=== PATIENT | female | born 1940 | race Caucasian/White ===

== ENCOUNTER 2021-02-12 13:12 | Day surgery (SDC) | payer MEDICARE, OTHER ==
[2012-05-20 13:30] VITALS: BP 146/75
[2021-02-12] MEDS ORDERED: Depo-Medrol 40 MG/ML IM ONE (13:13)
[2021-02-12] MEDS ORDERED: LIDOCAINE HCL 2% 100 MG/5 ML IJ ONE (13:13)
[2021-02-12] MEDS ORDERED: Xylocaine 1% Vial 30 ML PF IJ ONE (13:13)
[2021-02-12] MEDS ORDERED: DIPRIVAN 200 MG/20 ML IV ONE (14:50)
[2021-02-12] MEDS ORDERED: Lactated Ringers 1,000 ML IV ONE (15:30)
--- NOTE | 2021-02-12 16:24 | XRAY ---
Indication: Bilateral T7-T10 MBB. Intraoperative fluoroscopy provided for 21 seconds. Single digital spot image submitted for interpretation demonstrate posterior needle tips projecting over the expected left and right T7-T10 nerve roots. Correlate with intraoperative findings/report.
--- NOTE | 2021-02-12 16:26 | XRAY ---
21 seconds fluoroscopy time in surgery for bilateral T7-T10 MBB.
== END 2021-02-12 15:16 | disposition home or self-care (01) ==
LOC: SDC-PAIN 13:12
PROVIDERS: ATTEND Psychiatry & Neurology Pain Medicine
DX: M47.814 Spondylosis without myelopathy or radiculopathy, thoracic region (principal); I10 Essential (primary) hypertension; K21.9 Gastro-esophageal reflux disease without esophagitis; K44.9 Diaphragmatic hernia without obstruction or gangrene; I34.1 Nonrheumatic mitral (valve) prolapse; Z79.899 Other long term (current) drug therapy
CPT/HCPCS: 64490; 64491; 64492; 72072; 77002; J1030; J2001; J2704

== ENCOUNTER 2021-03-26 09:10 | Day surgery (SDC) | payer MEDICARE, OTHER ==
[2012-05-20 13:30] VITALS: BP 146/75
[2021-03-26] MEDS ORDERED: BUPIVACAINE 0.5% VIAL IJ ONE (09:11)
[2021-03-26] MEDS ORDERED: Depo-Medrol 40 MG/ML IM ONE (09:11)
[2021-03-26] MEDS ORDERED: DIPRIVAN 200 MG/20 ML IV ONE (10:17)
--- NOTE | 2021-03-26 11:44 | XRAY ---
30 seconds fluoroscopy time in surgery for bilateral T7-T10 MBB.
--- NOTE | 2021-03-26 12:02 | XRAY ---
Indication: Bilateral T7-T10 MBB. Intraoperative fluoroscopy provided for 30 seconds. Single digital spot image submitted for interpretation demonstrates posterior needle tips projecting over the expected left and right T7-T10 nerve roots. Correlate with intraoperative findings/report.
[2021-03-26] MEDS ORDERED: Lactated Ringers 1,000 ML IV ONE (15:30)
== END 2021-03-26 10:52 | disposition home or self-care (01) ==
LOC: SDC-PAIN 09:10
PROVIDERS: ATTEND Psychiatry & Neurology Pain Medicine
DX: M47.814 Spondylosis without myelopathy or radiculopathy, thoracic region (principal); I10 Essential (primary) hypertension; F32.9 Major depressive disorder, single episode, unspecified; K21.9 Gastro-esophageal reflux disease without esophagitis; M19.90 Unspecified osteoarthritis, unspecified site; Z79.899 Other long term (current) drug therapy
CPT/HCPCS: 64490; 64491; 64492; 72020; 77002; J1030; J2704

== ENCOUNTER 2021-04-23 15:21 | Day surgery (SDC) | payer MEDICARE, OTHER ==
[2012-05-20 13:30] VITALS: BP 146/75
[2021-04-23] MEDS ORDERED: Depo-Medrol 40 MG/ML IM ONE (15:22)
[2021-04-23] MEDS ORDERED: BUPIVACAINE 0.5% VIAL IJ ONE (15:22)
[2021-04-23] MEDS ORDERED: Xylocaine 1% Vial 30 ML PF IJ ONE (15:22)
[2021-04-23] MEDS ORDERED: Lactated Ringers 1,000 ML IV ONE (18:50)
--- NOTE | 2021-04-23 20:56 | XRAY ---
Indication: Right T7-T10 RFA. Intraoperative fluoroscopy provided for 25 seconds. 2 digital spot images submitted for interpretation demonstrates posterior needle tips projecting over the expected right T7-T10 nerve roots. Correlate with intraoperative findings/report.
--- NOTE | 2021-04-24 08:56 | XRAY ---
25 seconds of fluoroscopy was used in surgery for a right T7-T10 RFA.
== END 2021-04-23 17:48 | disposition home or self-care (01) ==
LOC: SDC-PAIN 15:21
PROVIDERS: ATTEND Psychiatry & Neurology Pain Medicine
DX: M47.814 Spondylosis without myelopathy or radiculopathy, thoracic region (principal); Z79.899 Other long term (current) drug therapy
CPT/HCPCS: 64490; 64491; 64492; 72072; 77002; J1030; J2001

== ENCOUNTER 2021-04-30 14:13 | Day surgery (SDC) | payer MEDICARE, OTHER ==
[2012-05-20 13:30] VITALS: BP 146/75
[2021-04-30] MEDS ORDERED: Xylocaine 1% Vial 30 ML PF IJ ONE (14:14)
[2021-04-30] MEDS ORDERED: Depo-Medrol 40 MG/ML IM ONE (14:14)
[2021-04-30] MEDS ORDERED: BUPIVACAINE 0.5% VIAL IJ ONE (14:14)
[2021-04-30] MEDS ORDERED: DIPRIVAN 200 MG/20 ML IV ONE (15:37)
[2021-04-30] MEDS ORDERED: Lactated Ringers 1,000 ML IV ONE (15:59)
--- NOTE | 2021-05-01 11:54 | XRAY ---
26 seconds fluoroscopy time in surgery for left T7-T10 RFA.
--- NOTE | 2021-05-04 00:43 | XRAY ---
Indication: Left T7-T10 RFA. Intraoperative fluoroscopy was provided for 26 seconds. 2 digital spot images submitted for interpretation demonstrate posterior needle tips projected over the expected left T7-T10 nerve roots. Correlate with intraoperative findings/report.
== END 2021-04-30 16:11 | disposition home or self-care (01) ==
LOC: SDC-PAIN 14:13
PROVIDERS: ATTEND Psychiatry & Neurology Pain Medicine
DX: M47.816 Spondylosis without myelopathy or radiculopathy, lumbar region (principal); Z79.899 Other long term (current) drug therapy
CPT/HCPCS: 64490; 64491; 64492; 72072; 77002; J1030; J2001; J2704

== ENCOUNTER 2023-05-29 14:00 | Inpatient (IN) | payer MEDICARE, OTHER ==
--- NOTE | 2023-05-29 14:03 | ERPHSYRPT ---
- History of Present Illness Source: patient, family Exam Limitations: no limitations Timing/Duration: week(s) (Within the week symptoms are worsening), worse Severity of Dyspnea-Max: mild (To moderate) Severity of Dyspnea-Current: mild (To moderate with exertion) Possible Cause: occasional episodes Modifying Factors: Improves With: activity (Worsens), coughing (Nonproductive), exertion (Worsens), oxygen (Improved), rest (Improved) Associated Symptoms: cough Hx Tetanus, Diphtheria Vaccination/Date Given: Yes Hx Influenza Vaccination/Date Given: No Hx Pneumococcal Vaccination/Date Given: Yes <DAVIDE NICOLE - Last Filed: 05/29/23 18:45> <CLIFF COATS - Last Filed: 05/30/23 00:47> - History of Present Illness Time Seen by Provider: 05/29/23 14:03 Physician History: This is an obese 83-year-old white female patient of Dr. Roy who presents to the emergency department with 3-week history of shortness of breath that was improving the first 2 weeks. However in the last week, despite Z-Jeremy (currently on day 3) she is having increasing/worsening shortness of breath. Patient's oxygenation saturation level was in the high 80s on arrival to the emergency department we placed her on 2 L nasal cannula of oxygen. Her oxygen level now on 2 L of oxygen is approximately 96 to 97%. Patient does have a pain specialist, Dr. Seymour. In addition she has a car repairer, Dr. Ayala. Patient was recently diagnosed with an autoimmune disorder and is currently taking prednisone. In addition, the patient has a history of hypertension, migraine headaches, recurrent bronchitis, peripheral neuropathy and anxiety issues. She denies chest pain. She has no abdominal pain. She has not had a fever. She denies nausea vomiting and diarrhea. (DAVIDE NICOLE) Allergies/Adverse Reactions: terbinafine HCl [From Lamisil] Allergy (Verified 05/29/23 14:26) AFFECTS LIVER Home Medications: Bentyl 10 mg PO ACHS 05/17/12 [History] Enalapril Maleate 5 mg 20 mg PO BID 05/17/12 [History] Omeprazole 40 mg PO DAILY 05/17/12 [History] Propylene Glycol/Peg 400 [Systane 0.3-0.4% Eye Drops] 1 drop OP QID 06/27/15 [History] Amlodipine/Atorvastatin [Amlodipine-Atorvast 10-40 mg] 1 each PO HS 05/29/23 [History] Carboxymethylcellulose Sodium [Refresh Tears] 15 ml OP HS 05/29/23 [History] Chlorthalidone 25 mg PO DAILY 05/29/23 [History] Cyclosporine [Restasis Multidose] 1 drop OP BID 05/29/23 [History] Mirtazapine [Remeron] 15 mg PO DAILY 05/29/23 [History] Oxycodone / APAP 10/325 mg [Oxycodone-Acetaminophen 10-325] 1 tab PO BID PRN 05/29/23 [History] Potassium Chloride [Klor-Con 10] 10 meq PO QAM 05/29/23 [History] Prednisone 10 mg [Deltasone 10 mg] 10 mg PO DAILY 05/29/23 [History] Prednisone 5 mg [Deltasone 5 mg] 5 mg PO HS 05/29/23 [History] Vilazodone HCl [Viibryd] 40 mg PO DAILY 05/29/23 [History] Travel Risk - International Travel Have you traveled outside of the country in past 3 weeks: No - Coronavirus Screening Are you exhibiting any of the following symptoms?: Yes Symptoms: Cough: New Onset, Shortness of Breath <DAVIDE NICOLE - Last Filed: 05/29/23 18:45> - Review of Systems Constitutional: Weakness Eyes: No Symptoms Ears, Nose, & Throat: No Symptoms Respiratory: No Symptoms, Cough, Dyspnea on Exertion (ROSS) Cardiac: No Symptoms Abdominal/Gastrointestinal: No Symptoms Genitourinary Symptoms: No Symptoms Musculoskeletal: No Symptoms Skin: No Symptoms Neurological: No Symptoms Psychological: No Symptoms Endocrine: No Symptoms Hematologic/Lymphatic: No Symptoms Immunological/Allergic: No Symptoms All Other Systems: Reviewed and Negative <DAVIDE NICOLE - Last Filed: 05/29/23 18:45> - Past Medical History Pertinent Past Medical History: Yes Neurological History: Migraines, Peripheral Neuropathy ENT History: No Pertinent History Cardiac History: Hypertension Respiratory History: No Pertinent History Endocrine Medical History: No Pertinent History Musculoskeletal History: Degenerative Disk Disease, Osteoarthritis GI Medical History: Diverticulitis, Ulcer History: No Pertinent History Psycho-Social History: Depression, Anxiety Female Reproductive Disorders: No Pertinent History Other Medical History: Back pain, buldging disc, wore a Lumbar brace. Had a pain shot. Leaky Valve. - Past Surgical History Past Surgical History: Yes Neuro Surgical History: No Pertinent History Cardiac: No Pertinent History Respiratory: No Pertinent History Gastrointestinal: Appendectomy Genitourinary: Other Musculoskeletal: No Pertinent History Female Surgical History: No Pertinent History Other Surgical History: BLADDER TIE UP, abdominoplasty, Lft wrist surgery after fx - Social History Smoking Status: Former smoker Exposure to second hand smoke: No Drug Use: none Patient Lives Alone: No <DAVIDE NICOLE - Last Filed: 05/29/23 18:45> - Physical Exam General Appearance: no apparent distress, alert, anxiety, obese Eye Exam: PERRL/EOMI, eyes nml inspection Ears, Nose, Throat Exam: hearing grossly normal, normal ENT inspection, normal pharynx Neck Exam: normal inspection, non-tender, supple, full range of motion Respiratory Exam: normal breath sounds, lungs clear, respiratory distress, airway intact (Mild), No chest tenderness Cardiovascular/Chest Exam: tachycardia (Mild) Abdominal/Gastrointestinal Exam: soft, normal bowel sounds, No tenderness Rectal Exam: not done Extremity Exam: non-tender, normal range of motion, normal inspection, normal capillary refill, no calf tenderness, no pedal edema, pelvis stable Neurologic Exam: alert, oriented x 3, cooperative, light rail operator II-XII nml as tested, normal mood/affect Skin Exam: normal color, warm, dry Lymphatic Exam: No adenopathy SpO2 Interpretation: hypoxic O2 Delivery: Room Air <DAVIDE NICOLE - Last Filed: 05/29/23 18:45> - Nursing Vital Signs Nursing Vital Signs: Initial Vital Signs Temperature 98.4 F 05/29/23 14:03 Pulse Rate 104 H 05/29/23 14:03 Respiratory Rate 20 05/29/23 14:03 Blood Pressure 99/68 05/29/23 14:03 O2 Sat by Pulse Oximetry 90 L 05/29/23 14:03 Pain Scale Pain Intensity 0 - Course Nursing assessment & vital signs reviewed: Yes <DAVIDE NICOLE - Last Filed: 05/29/23 18:45> - CT Exams Chest CT Interpretation: Tele-radiologist Report, Other (PE 4th order branches of RLL) <CLIFF COATS - Last Filed: 05/30/23 00:47> Ordered Tests: Active Orders 24 hr Category Date Time Status Up With Assistance ROUTINE Activity 05/29/23 22:29 Active Call Admit Doctor for Orders ON ADMISSION Care 05/29/23 22:29 Active Carpentry Supervisor ROUTINE Care 05/29/23 22:29 Active Carpentry Supervisor STAT Care 05/29/23 14:19 Completed Code Status Order ROUTINE Care 05/29/23 22:29 Active EKG-ER Only STAT Care 05/29/23 14:18 Completed EKG-ER Only STAT Care 05/29/23 20:04 Completed IV Insertion STAT Care 05/29/23 14:18 Completed Heart-Healthy Diet Diet 05/30/23 Breakfast Active CHEST 1 VIEW (PORTABLE) Stat Exams 05/29/23 14:18 Completed CHEST WITH CONTRAST [CT] Stat Exams 05/29/23 19:06 Completed BLOOD CULTURE Stat Lab 05/29/23 14:49 Received BMP Stat Lab 05/29/23 17:40 Completed CBC W DIFF Stat Lab 05/29/23 14:35 Completed CMP Stat Lab 05/29/23 14:49 Completed D-DIMER QUANTITATIVE Stat Lab 05/29/23 14:49 Completed Lactic Acid Stat Lab 05/29/23 14:46 Completed NT PRO BNPII Stat Lab 05/29/23 14:49 Completed TROPONIN Q4H Lab 05/29/23 14:49 Completed TROPONIN Q4H Lab 05/29/23 17:40 Completed TROPONIN Q4H Lab 05/29/23 22:56 Completed Pulse Oximetry .continuos RT 05/29/23 22:29 Active Respiratory Therapy Consult ONCE RT 05/29/23 22:29 Completed Transfer Order Routine Transfer 05/29/23 Completed Medication Summary Generic Name Dose Route Start Last Admin Trade Name Freq PRN Reason Stop Dose Admin Enoxaparin Sodium 70 mg 05/30/23 10:30 Enoxaparin Sodium 80 Mg/0.8 Ml Syringe 1 mg/kg (70 mg) 06/29/23 10:29 SQ Q12H NAKITA Sodium Chloride 1,000 mls @ 100 mls/hr 05/29/23 23:30 05/29/23 23:31 Sodium Chloride 0.9% 1000 Ml IV 06/28/23 23:29 100 mls/hr .Q10H NAKITA Administration Discontinued Medications Generic Name Dose Route Start Last Admin Trade Name Sasha PRN Reason Stop Dose Admin Enoxaparin Sodium 70 mg 05/29/23 21:45 05/29/23 22:15 Enoxaparin Sodium 80 Mg/0.8 Ml Syringe SQ 05/29/23 21:46 70 mg STAT ONE Administration Enoxaparin Sodium Confirm 05/29/23 22:15 Enoxaparin Sodium 80 Mg/0.8 Ml Syringe Administered 05/29/23 22:16 Dose 80 mg SQ .STK-MED ONE Sodium Chloride 500 mls @ 500 mls/hr 05/29/23 15:36 05/29/23 17:19 Sodium Chloride 0.9% 500 Ml IV 05/29/23 16:35 Infused .Q1H ONE Infusion Sodium Chloride Confirm 05/29/23 16:07 Sodium Chloride 0.9% 500 Ml Administered 05/29/23 16:08 Dose 500 mls @ ud IV .STK-MED ONE Sodium Chloride 500 mls @ 100 mls/hr 05/29/23 18:30 05/29/23 18:47 Sodium Chloride 0.9% 500 Ml IV 06/28/23 18:29 100 mls/hr .Q5H NAKITA Administration Sodium Chloride Confirm 05/29/23 23:13 Sodium Chloride 0.9% 1000 Ml Administered 05/29/23 23:14 Dose 1,000 mls @ ud .ROUTE .STK-MED ONE Sodium Chloride Confirm 05/29/23 18:47 Sodium Chloride 0.9% 500 Ml Administered 05/29/23 18:48 Dose 500 mls @ ud IV .STK-MED ONE Pantoprazole Sodium 40 mg 05/29/23 20:10 05/29/23 20:15 Pantoprazole 40 Mg Vial IV 05/29/23 20:11 40 mg STAT ONE Administration Pantoprazole Sodium Confirm 05/29/23 20:14 Pantoprazole 40 Mg Vial Administered 05/29/23 20:15 Dose 40 mg IV .STK-MED ONE Lab/Rad Data: Laboratory Result Diagrams 05/29/23 14:35 05/29/23 17:40 Laboratory Results 05/29/23 05/29/23 05/29/23 Range/Units 17:40 17:40 14:55 WBC (4.0-10.5) x10^3/uL RBC (4.1-5.4) x10^6/uL Hgb (12.0-16.0) g/dL Hct (35-47) % MCV (78-100) fL MCH (26-32) pg MCHC (32-36) g/dL RDW (11.5-14.0) % Plt Count (150-450) x10^3/uL MPV (7.5-11.0) fL Gran % (36.0-66.0) % Immature Gran % (Auto) (0.00-0.4) % Nucleat RBC Rel Count (0.00-0.1) % Eos # (Auto) (0-0.5) x10^3/uL Immature Gran # (Auto) (0.00-0.03) x10^3u/L Absolute Lymphs (auto) (1.0-4.6) x10^3/uL Absolute Monos (auto) (0.0-1.3) x10^3/uL Absolute Nucleated RBC (0.00-0.01) x10^3u/L Lymphocytes % (24.0-44.0) % Monocytes % (0.0-12.0) % Eosinophils % (0.00-5.0) % Basophils % (0.0-0.4) % Absolute Granulocytes (1.4-6.9) x10^3/uL Basophils # (0-0.4) x10^3/uL D-Dimer (0.0-0.50) mg/L Sodium 135 L (137-145) mmol/L Potassium 3.7 (3.5-5.1) mmol/L Chloride 103 (98-107) mmol/L Carbon Dioxide 25 (22-30) mmol/L Anion Gap 10.5 (5-15) MEQ/L BUN 42 H (7-17) mg/dL Creatinine 1.42 H (0.52-1.04) mg/dL Estimated GFR 37.6 ML/MIN Glucose 97 (74-106) mg/dL Lactic Acid (0.4-2.0) Calcium 8.6 (8.4-10.2) mg/dL Total Bilirubin (0.2-1.3) mg/dL AST (14-36) U/L ALT (0-35) U/L Alkaline Phosphatase (38-126) U/L Troponin I 0.033 (0.000-0.034) ng/mL NT-Pro-B Natriuret Pep (<300) pg/mL Serum Total Protein (6.3-8.2) g/dL Albumin (3.5-5.0) g/dL Influenza Type A Ag NEGATIVE (NEGATIVE) Influenza Type B Ag NEGATIVE (NEGATIVE) RSV (PCR) NEGATIVE (NEGATIVE) SARS-CoV-2 (PCR) NEGATIVE (NEGATIVE) 05/29/23 05/29/23 05/29/23 Range/Units 14:49 14:49 14:49 WBC (4.0-10.5) x10^3/uL RBC (4.1-5.4) x10^6/uL Hgb (12.0-16.0) g/dL Hct (35-47) % MCV (78-100) fL MCH (26-32) pg MCHC (32-36) g/dL RDW (11.5-14.0) % Plt Count (150-450) x10^3/uL MPV (7.5-11.0) fL Gran % (36.0-66.0) % Immature Gran % (Auto) (0.00-0.4) % Nucleat RBC Rel Count (0.00-0.1) % Eos # (Auto) (0-0.5) x10^3/uL Immature Gran # (Auto) (0.00-0.03) x10^3u/L Absolute Lymphs (auto) (1.0-4.6) x10^3/uL Absolute Monos (auto) (0.0-1.3) x10^3/uL Absolute Nucleated RBC (0.00-0.01) x10^3u/L Lymphocytes % (24.0-44.0) % Monocytes % (0.0-12.0) % Eosinophils % (0.00-5.0) % Basophils % (0.0-0.4) % Absolute Granulocytes (1.4-6.9) x10^3/uL Basophils # (0-0.4) x10^3/uL D-Dimer 1.86 H* (0.0-0.50) mg/L Sodium 134 L (137-145) mmol/L Potassium 3.7 (3.5-5.1) mmol/L Chloride 100 (98-107) mmol/L Carbon Dioxide 22 (22-30) mmol/L Anion Gap 15.2 H (5-15) MEQ/L BUN 44 H (7-17) mg/dL Creatinine 1.51 H (0.52-1.04) mg/dL Estimated GFR 35.1 ML/MIN Glucose 139 H (74-106) mg/dL Lactic Acid (0.4-2.0) Calcium 8.7 (8.4-10.2) mg/dL Total Bilirubin 0.40 (0.2-1.3) mg/dL AST 32 (14-36) U/L ALT 30 (0-35) U/L Alkaline Phosphatase 76 (38-126) U/L Troponin I 0.037 H* (0.000-0.034) ng/mL NT-Pro-B Natriuret Pep 305 (<300) pg/mL Serum Total Protein 6.0 L (6.3-8.2) g/dL Albumin 3.6 (3.5-5.0) g/dL Influenza Type A Ag (NEGATIVE) Influenza Type B Ag (NEGATIVE) RSV (PCR) (NEGATIVE) SARS-CoV-2 (PCR) (NEGATIVE) 05/29/23 05/29/23 Range/Units 14:46 14:35 WBC 9.2 (4.0-10.5) x10^3/uL RBC 4.24 (4.1-5.4) x10^6/uL Hgb 11.5 L (12.0-16.0) g/dL Hct 36.5 (35-47) % MCV 86.1 (78-100) fL MCH 27.1 (26-32) pg MCHC 31.5 L (32-36) g/dL RDW 20.5 H (11.5-14.0) % Plt Count 254 (150-450) x10^3/uL MPV 8.4 (7.5-11.0) fL Gran % 82.7 H (36.0-66.0) % Immature Gran % (Auto) 1.1 H (0.00-0.4) % Nucleat RBC Rel Count 0.0 (0.00-0.1) % Eos # (Auto) 0.02 (0-0.5) x10^3/uL Immature Gran # (Auto) 0.10 H (0.00-0.03) x10^3u/L Absolute Lymphs (auto) 0.97 L (1.0-4.6) x10^3/uL Absolute Monos (auto) 0.48 (0.0-1.3) x10^3/uL Absolute Nucleated RBC 0.00 (0.00-0.01) x10^3u/L Lymphocytes % 10.5 L (24.0-44.0) % Monocytes % 5.2 (0.0-12.0) % Eosinophils % 0.2 (0.00-5.0) % Basophils % 0.3 (0.0-0.4) % Absolute Granulocytes 7.64 H (1.4-6.9) x10^3/uL Basophils # 0.03 (0-0.4) x10^3/uL D-Dimer (0.0-0.50) mg/L Sodium (137-145) mmol/L Potassium (3.5-5.1) mmol/L Chloride (98-107) mmol/L Carbon Dioxide (22-30) mmol/L Anion Gap (5-15) MEQ/L BUN (7-17) mg/dL Creatinine (0.52-1.04) mg/dL Estimated GFR ML/MIN Glucose (74-106) mg/dL Lactic Acid 1.6 (0.4-2.0) Calcium (8.4-10.2) mg/dL Total Bilirubin (0.2-1.3) mg/dL AST (14-36) U/L ALT (0-35) U/L Alkaline Phosphatase (38-126) U/L Troponin I (0.000-0.034) ng/mL NT-Pro-B Natriuret Pep (<300) pg/mL Serum Total Protein (6.3-8.2) g/dL Albumin (3.5-5.0) g/dL Influenza Type A Ag (NEGATIVE) Influenza Type B Ag (NEGATIVE) RSV (PCR) (NEGATIVE) SARS-CoV-2 (PCR) (NEGATIVE) - Progress Progress: improved, re-examined Air Movement: fair Blood Culture(s) Obtained: No Antibiotics given: No Counseled pt/family regarding: lab results, diagnosis, rad results <NICOLEDAVIDE Rik - Last Filed: 05/29/23 18:45> <CLIFF COATS - Last Filed: 05/30/23 00:47> - Progress Progress Note: 05/29/23 18:46 This patient's medical issue is that is of high complexity. Level of complexity in the work-up performed is based on review of the patient's past medical history, review of the patient's medication list, review the patient's drug allergy list, history present illness and physical findings on examination. Work-up in this patient includes chest x-ray, twelve-lead EKG, CBC, CMP, BNP, troponin level and D-dimer. 05/29/23 18:48 Chest x-ray was interpreted by me. There is evidence of mild cardiomegaly and question of bibasilar atelectasis. Review of the patient's blood work shows very slight elevation in the troponin level. The twelve-lead EKG does not show any acute myocardial infarction. The D-dimer is significantly elevated. However, the patient does have evidence of renal insufficiency/acute on chronic renal failure. She has a GFR of 34. I did rehydrate her and her GFR increased to 37.6. I provided the patient and family several options. The first option is to perform the CT scan of the chest with contrast while rehydrating her now and continue in the hospital. I do not think the patient should go home. The second option was to perform a CT scan of the chest without contrast and put her on anticoagulation therapy while we improve her respiratory status and then, when her renal function improves, performed a CT scan of the chest with contrast. The third option was to perform the CT scan of the chest without contrast, anticoagulate her and wait to perform a VQ scan of the chest. However, in this option, the patient would likely have to wait till next week on , June 03, 2023 when the nuclear medicine team is available and here. 05/31/2023 is a holiday and they will not be here to perform nuclear medicine studies. The final option is to transfer the patient to another facility to perform the testing. The patient and family had a discussion and they have decided to perform the CT scan of the chest with contrast and have a good understanding of the possibility of worsening kidney function and ultimately having to undergo dialysis. They are aware that I feel that this risk is low. 05/29/23 18:54 I reviewed this patient with Dr. Coats. I transferred care of this patient to Dr. Coats at shift change. He will follow-up on the remaining studies and make final disposition. (DAVIDE NICOLE) Assumed care at 1900. I personally reevaluated the patient who is in no respiratory distress at this time is saturating well on nasal cannula. She denies any current shortness of breath. Lung sounds were diminished in all soliman, but no crackles, wheezing, rhonchi appreciated. Patient has agreed to get CTA chest to rule out PE. We will discuss results once they are available. Patient will be admitted, but decision will be made after CT results as to if she will stay here or be transferred. If she has to be transferred she would prefer to go to [facility]. 05/29/23 19:[address] patient reported chest pain that had resolved almost completely by the time she was back in the room. He states it is similar to discomfort that she has frequently that resolves with Tums. Repeat EKG was ordered that showed sinus rhythm at 96 bpm with normal intervals and no ST changes. Give 40 mg of IV Protonix. 05/29/23 20:12 CTA chest showed a PE in the fourth order branches of the right lower lobe. Patient started on therapeutic Lovenox at 70 mg. We will reach out to telehospitalist regarding admission. 05/29/23 21:49 Patient accepted for admission at 1004. (CLIFF COATS) Medical Desision Making - Independent Historian Additional History obtained from: Family - Diagnostic Testing Diagnostic test were ordered, analyzed, and reviewed by me: Yes Radiological Interpretation: Reviewed by me, Teleradiologist Report - Risk of complications The pt has a high risk of morbidity or mortality based on: Decision regarding hospitilization or escalation of hosp level of care <DAVIDE NICOLE - Last Filed: 05/29/23 18:45> - Risk of complications The pt has a mod risk of morbidity or mortality based on: Need for prescription drug management <CLIFF COATS - Last Filed: 05/30/23 00:47> - Departure Departure Disposition: In-patient Admission Critical Care Time: Yes Critical Care Time(excluding separately billable procedures): Critical 30-74 mins (45 minutes) <DAVIDE NICOLE - Last Filed: 05/29/23 18:45> - Departure Departure Disposition: Observation <CLIFF COATS - Last Filed: 05/30/23 00:47> - Departure Clinical Impression: Hypoxia, Shortness of breath, Acute on chronic renal failure, Elevated d-dimer, Pulmonary embolism Condition: Stable
[2023-05-29 15:00] LABS: Absolute Neutrophil Ct (ANC) 7.64 x10^3/uL (1.4-6.9); BASOPHIL % 0.3 % (0.0-0.4); Basophil (Absolute #) 0.03 x10^3/uL (0-0.4); Eosinophil % 0.2 % (0.00-5.0); Eosinophil (Absolute #) 0.02 x10^3/uL (0-0.5); Hematocrit 36.5 % (35-47); Hemoglobin 11.5 g/dL (12.0-16.0); IMMATURE GRAN % 1.1 % (0.00-0.4); Lymphocyte (Absolute #) 0.97 x10^3/uL (1.0-4.6); Lymphocytes % 10.5 % (24.0-44.0); Mean Cell Volume 86.1 fL (78-100); Mean Corpuscular Hemoglobin 27.1 pg (26-32); Mean Corpuscular Hgb Concent. 31.5 g/dL (32-36); Mean Platelet Volume 8.4 fL (7.5-11.0); Monocyte (Absolute #) 0.48 x10^3/uL (0.0-1.3); Monocytes % 5.2 % (0.0-12.0); Neutrophil % 82.7 % (36.0-66.0); Platelet Count 254 x10^3/uL (150-450); Red Blood Count 4.24 x10^6/uL (4.1-5.4); Red Cell Distribution Width 20.5 % (11.5-14.0); White Blood Count 9.2 x10^3/uL (4.0-10.5)
[2023-05-29 15:24] LABS: ALBUMIN 3.6 g/dL (3.5-5.0); ANION GAP 15.2 MEQ/L (5-15); BILIRUBIN,TOTAL 0.4 mg/dL (0.2-1.3); Calcium 8.7 mg/dL (8.4-10.2); Creatinine 1 1.51 mg/dL (0.52-1.04); EST GLOMERULAR FILTRATION RATE 35.1 ML/MIN; Potassium 3.7 mmol/L (3.5-5.1)
[2023-05-29] MEDS ORDERED: Sodium Chloride 0.9% 500 ML 500 ML IV ONE ×3 (15:36→18:47)
[2023-05-29 16:36] LABS: INFLUENZA A NEGATIVE (NEGATIVE); INFLUENZA B NEGATIVE (NEGATIVE); RESPIRATORY SYNCTIAL VIRUS NEGATIVE (NEGATIVE); SARS-CoV-2 Xpert Express NEGATIVE (NEGATIVE)
[2023-05-29 17:55] LABS: ANION GAP 10.5 MEQ/L (5-15); Calcium 8.6 mg/dL (8.4-10.2); Creatinine 1 1.42 mg/dL (0.52-1.04); EST GLOMERULAR FILTRATION RATE 37.6 ML/MIN; Potassium 3.7 mmol/L (3.5-5.1)
[2023-05-29] MEDS ORDERED: Sodium Chloride 0.9% 500 ML 500 ML IV SCH (18:30)
[2023-05-29] MEDS ORDERED: PROTONIX 40 MG IV IV ONE ×2 (20:10→20:14)
--- NOTE | 2023-05-29 20:43 | XRAY ---
Indication: Short of breath. Comparison: March 24, 2019 Portable chest remains hyperinflated and clear with incidental right midlung calcified granuloma. Heart now enlarged. Stable moderate-sized hiatal hernia. Bony thorax intact. Impression: Cardiomegaly and hiatal hernia. Negative for acute pneumonic process or CHF.
--- NOTE | 2023-05-29 21:21 | XRAY ---
CLINICAL HISTORY:hypoxic; elevated d dimer COMPARISON:None. TECHNIQUE:Axial CTA images of the chest with intravenous contrast using a pulmonary embolism protocol as per angiographic protocol. Three-dimensional MIP-rendered reformations in Coronal and Sagittal planes were performed, reconstructed, and reviewed. 100 cc Isovue 370 was administered for post-contrast images. FINDINGS: Normal main pulmonary artery and the left and right main pulmonary trunks. Pulmonary embolism is detected in the right pulmonary fourth-order branches of the right lower lobe. Heart size is increased, and there is no pericardial effusion. The scanned pulmonary parenchyma shows no definite consolidative lesions. Bilateral diffuse mosaic attenuation of both lung soliman. The right upper lobe calcified nodule is seen measuring 7 mm. Prominence of bilateral chronic interstitial markings, fibroatelectatic bands, and subpleural lines are seen. No free or encysted pleural effusion. Normal ascending aorta, descending aorta, and aortic arch. Large hiatus hernia noted. IMPRESSION: Normal main pulmonary artery and the left and right main pulmonary trunks. Pulmonary embolism is detected in the right pulmonary fourth order branches of the right lower lobe. Mild cardiomegaly. Bilateral diffuse mosaic attenuation of both lung soliman. Possibilities include obstructive small airway disease or occlusive vascular disease. A large hiatus hernia is seen. Right upper lung lobe calcified nodule. Prominence of bilateral chronic interstitial markings, fibroatelectatic bands and subpleural lines are seen. Electronically Signed by: Timur Lambert MD. (05/29/2023 20:20:31 MUNICIPAL BOND TRADER)
[2023-05-29] MEDS ORDERED: ENOXAPARIN SODIUM SQ ONE ×2 (21:45→22:15)
[2023-05-29] MEDS ORDERED: Sodium Chloride 0.9% 1000 ML 1,000 ML ONE (23:13)
[2023-05-29] MEDS: Sodium Chloride 0.9% 1000 ML 1,000 ML IV SCH (23:31)
[2023-05-30] MEDS ORDERED: OXYCODONE-ACETAMINOPHEN 10-325 PO PRN (00:43)
--- NOTE | 2023-05-30 01:03 | PCM.HP ---
History of Present Illness - Chief Complaint Chief Complaint: pulmonary embolism Date: 05/30/23 History of Present Illness: Ms. Lama is an 83 year-old female with HTN, CKD, and DJD who presents with acute hypoxemic respiratory failure. She had been hospitalized for a pneumonia 3-4 weeks ago, and was discharged feeling better. She is generally fairly inactive due to her DJD leading to chronic lower back pain, but since her discharge from the hospital has been more so. Over the last 8 days, she has noticed worsening shortness of breath with exertion along with a cough. She was prescribed a Z-Pack by her PCP three days ago, but without any improvement in her symptoms, she presents today to [place]. Upon arrival, her laboratory data was remarkable for anemia, mild hyponatremia, and mildly elevated cardiac enzymes, and her CTA chest revealed a pulmonary embolism. Additionally, she was observed to be requiring supplemental oxygen with oxygen saturations in the low 80s on room air. On my examination, she is resting comfortably on 2L NC oxygen denying any current fevers, chills, nausea, vomiting, diarrhea, syncope, presyncope, visual changes, orthopnea, PND, odynophagia, dysphagia, chest pain, shortness of breath, belly pain, dysuria, hematuria, melena, hematochezia, or neurological changes. All other systems were reviewed and were negative. - Review of Systems Constitutional: Other ( PER HPI) Medications & Allergies Home Medications: Home Medication List Bentyl 10 mg PO ACHS 05/17/12 [History Confirmed 05/29/23] Enalapril Maleate 5 mg 20 mg PO BID 05/17/12 [History Confirmed 05/29/23] Omeprazole 40 mg PO DAILY 05/17/12 [History Confirmed 05/29/23] Propylene Glycol/Peg 400 [Systane 0.3-0.4% Eye Drops] 1 drop OP QID 06/27/15 [H istory Confirmed 05/29/23] Amlodipine/Atorvastatin [Amlodipine-Atorvast 10-40 mg] 1 each PO HS 05/29/23 [History Confirmed 05/29/23] Carboxymethylcellulose Sodium [Refresh Tears] 15 ml OP HS 05/29/23 [History Confirmed 05/29/23] Chlorthalidone 25 mg PO DAILY 05/29/23 [History Confirmed 05/29/23] Cyclosporine [Restasis Multidose] 1 drop OP BID 05/29/23 [History Confirmed 05/29/23] Mirtazapine [Remeron] 15 mg PO DAILY 05/29/23 [History Confirmed 05/29/23] Oxycodone / APAP 10/325 mg [Oxycodone-Acetaminophen 10-325] 1 tab PO BID PRN 05/29/23 [History Confirmed 05/29/23] Potassium Chloride [Klor-Con 10] 10 meq PO QAM 05/29/23 [History Confirmed 05/29/23] Prednisone 10 mg [Deltasone 10 mg] 10 mg PO DAILY 05/29/23 [History Confirmed 05/29/23] Prednisone 5 mg [Deltasone 5 mg] 5 mg PO HS 05/29/23 [History Confirmed 05/29/23] Vilazodone HCl [Viibryd] 40 mg PO DAILY 05/29/23 [History Confirmed 05/29/23] Allergies/Adverse Reactions: Allergies Allergy/AdvReac Type Severity Reaction Status Date / Time terbinafine HCl Allergy Verified 05/29/23 14:26 [From Lamisil] - Past Medical History Past Medical History: Yes Neurological History: Migraines, Peripheral Neuropathy ENT History: No Pertinent History Cardiac History: Hypertension Respiratory History: No Pertinent History Endocrine Medical History: No Pertinent History Musculoskelatal History: Degenerative Disk Disease, Osteoarthritis GI Medical History: Ulcer History: No Pertinent History Pyscho-Social History: Depression, Anxiety Reproductive Disorders: No Pertinent History Comment: Back pain, buldging disc, wore a Lumbar brace. Had a pain shot. Leaky Valve. - Female History Are you now?: No - Past Surgical History Past Surgical History: Yes Neuro Surgical History: No Pertinent History Cardiac History: No Pertinent History Respiratory Surgery: No Pertinent History GI Surgical History: Appendectomy Genitourinary Surgical Hx: Other Musculskeletal Surgical Hx: No Pertinent History Female Surgical History: No Pertinent History Other Surgical History: BLADDER TIE UP, abdominoplasty, Lft wrist surgery after fx - Social History Smoking Status: Former smoker Exposure to second hand smoke: No Alcohol: Daily Drug Use: none - Physical Exam Vital Signs: Vital Signs - 24 hr Temp Pulse Resp BP BP Pulse Ox 05/30/23 00:00 97.9 F 96 H 18 153/74 93 L 05/29/23 23:00 96 H 18 93 L 05/29/23 22:39 97.9 F 107 H 18 153/74 90 L 05/29/23 22:29 103 H 05/29/23 22:00 98 H 27 H 122/85 96 05/29/23 21:31 107 H 22 123/84 99 05/29/23 21:00 100 H 16 124/83 97 05/29/23 20:30 92 H 15 139/89 96 05/29/23 20:06 95 H 28 H 153/91 97 05/29/23 20:05 100 H 17 96 05/29/23 19:31 106 H 31 H 112/76 94 L 05/29/23 19:00 107 H 21 118/81 96 05/29/23 18:30 98 H 29 H 119/81 97 05/29/23 18:00 98 H 27 H 112/76 95 05/29/23 17:30 97 H 35 H 119/80 96 05/29/23 17:09 98 H 26 H 122/94 97 05/29/23 16:30 95 H 29 H 121/76 95 05/29/23 16:00 98 H 23 103/71 92 L 05/29/23 15:33 97 H 25 H 105/70 05/29/23 15:18 99 H 23 106/75 05/29/23 14:03 98.4 F 104 H 25 H 99/68 90 L General Appearance: no apparent distress, alert Neurologic Exam: alert, oriented x 3, cooperative, normal mood/affect, nml cerebellar function, nml station & gait, sensation nml, No motor deficits Eye Exam: PERRL/EOMI, eyes nml inspection Ears, Nose, Throat Exam: normal ENT inspection, TMs normal, pharynx normal, moist mucous membranes Neck Exam: normal inspection, non-tender, supple, full range of motion Respiratory Exam: normal breath sounds, lungs clear, No respiratory distress Cardiovascular Exam: regular rate/rhythm, normal heart sounds, normal peripheral pulses Gastrointestinal/Abdomen Exam: soft, normal bowel sounds, No tenderness, No mass Back Exam: normal inspection, normal range of motion, No CVA tenderness, No vertebral tenderness Extremity Exam: normal inspection, normal range of motion, pelvis stable Skin Exam: normal color, warm, dry, No rash Lymphatic Exam: No adenopathy Results - Labs Lab/Micro Results: Lab Results-Last 24 Hours 05/29/23 05/29/23 05/29/23 Range/Units 14:35 14:46 14:49 WBC 9.2 (4.0-10.5) x10^3/uL RBC 4.24 (4.1-5.4) x10^6/uL Hgb 11.5 L (12.0-16.0) g/dL Hct 36.5 (35-47) % MCV 86.1 (78-100) fL MCH 27.1 (26-32) pg MCHC 31.5 L (32-36) g/dL RDW 20.5 H (11.5-14.0) % Plt Count 254 (150-450) x10^3/uL MPV 8.4 (7.5-11.0) fL Gran % 82.7 H (36.0-66.0) % Immature Gran % (Auto) 1.1 H (0.00-0.4) % Nucleat RBC Rel Count 0.0 (0.00-0.1) % Eos # (Auto) 0.02 (0-0.5) x10^3/uL Immature Gran # (Auto) 0.10 H (0.00-0.03) x10^3u/L Absolute Lymphs (auto) 0.97 L (1.0-4.6) x10^3/uL Absolute Monos (auto) 0.48 (0.0-1.3) x10^3/uL Absolute Nucleated RBC 0.00 (0.00-0.01) x10^3u/L Lymphocytes % 10.5 L (24.0-44.0) % Monocytes % 5.2 (0.0-12.0) % Eosinophils % 0.2 (0.00-5.0) % Basophils % 0.3 (0.0-0.4) % Absolute Granulocytes 7.64 H (1.4-6.9) x10^3/uL Basophils # 0.03 (0-0.4) x10^3/uL D-Dimer (0.0-0.50) mg/L Sodium 134 L (137-145) mmol/L Potassium 3.7 (3.5-5.1) mmol/L Chloride 100 (98-107) mmol/L Carbon Dioxide 22 (22-30) mmol/L Anion Gap 15.2 H (5-15) MEQ/L BUN 44 H (7-17) mg/dL Creatinine 1.51 H (0.52-1.04) mg/dL Estimated GFR 35.1 ML/MIN Glucose 139 H (74-106) mg/dL Lactic Acid 1.6 (0.4-2.0) Calcium 8.7 (8.4-10.2) mg/dL Total Bilirubin 0.40 (0.2-1.3) mg/dL AST 32 (14-36) U/L ALT 30 (0-35) U/L Alkaline Phosphatase 76 (38-126) U/L Troponin I (0.000-0.034) ng/mL NT-Pro-B Natriuret Pep 305 (<300) pg/mL Serum Total Protein 6.0 L (6.3-8.2) g/dL Albumin 3.6 (3.5-5.0) g/dL Influenza Type A Ag (NEGATIVE) Influenza Type B Ag (NEGATIVE) RSV (PCR) (NEGATIVE) SARS-CoV-2 (PCR) (NEGATIVE) 05/29/23 05/29/23 05/29/23 Range/Units 14:49 14:49 14:55 WBC (4.0-10.5) x10^3/uL RBC (4.1-5.4) x10^6/uL Hgb (12.0-16.0) g/dL Hct (35-47) % MCV (78-100) fL MCH (26-32) pg MCHC (32-36) g/dL RDW (11.5-14.0) % Plt Count (150-450) x10^3/uL MPV (7.5-11.0) fL Gran % (36.0-66.0) % Immature Gran % (Auto) (0.00-0.4) % Nucleat RBC Rel Count (0.00-0.1) % Eos # (Auto) (0-0.5) x10^3/uL Immature Gran # (Auto) (0.00-0.03) x10^3u/L Absolute Lymphs (auto) (1.0-4.6) x10^3/uL Absolute Monos (auto) (0.0-1.3) x10^3/uL Absolute Nucleated RBC (0.00-0.01) x10^3u/L Lymphocytes % (24.0-44.0) % Monocytes % (0.0-12.0) % Eosinophils % (0.00-5.0) % Basophils % (0.0-0.4) % Absolute Granulocytes (1.4-6.9) x10^3/uL Basophils # (0-0.4) x10^3/uL D-Dimer 1.86 H* (0.0-0.50) mg/L Sodium (137-145) mmol/L Potassium (3.5-5.1) mmol/L Chloride (98-107) mmol/L Carbon Dioxide (22-30) mmol/L Anion Gap (5-15) MEQ/L BUN (7-17) mg/dL Creatinine (0.52-1.04) mg/dL Estimated GFR ML/MIN Glucose (74-106) mg/dL Lactic Acid (0.4-2.0) Calcium (8.4-10.2) mg/dL Total Bilirubin (0.2-1.3) mg/dL AST (14-36) U/L ALT (0-35) U/L Alkaline Phosphatase (38-126) U/L Troponin I 0.037 H* (0.000-0.034) ng/mL NT-Pro-B Natriuret Pep (<300) pg/mL Serum Total Protein (6.3-8.2) g/dL Albumin (3.5-5.0) g/dL Influenza Type A Ag NEGATIVE (NEGATIVE) Influenza Type B Ag NEGATIVE (NEGATIVE) RSV (PCR) NEGATIVE (NEGATIVE) SARS-CoV-2 (PCR) NEGATIVE (NEGATIVE) 05/29/23 05/29/23 05/29/23 Range/Units 17:40 17:40 22:56 WBC (4.0-10.5) x10^3/uL RBC (4.1-5.4) x10^6/uL Hgb (12.0-16.0) g/dL Hct (35-47) % MCV (78-100) fL MCH (26-32) pg MCHC (32-36) g/dL RDW (11.5-14.0) % Plt Count (150-450) x10^3/uL MPV (7.5-11.0) fL Gran % (36.0-66.0) % Immature Gran % (Auto) (0.00-0.4) % Nucleat RBC Rel Count (0.00-0.1) % Eos # (Auto) (0-0.5) x10^3/uL Immature Gran # (Auto) (0.00-0.03) x10^3u/L Absolute Lymphs (auto) (1.0-4.6) x10^3/uL Absolute Monos (auto) (0.0-1.3) x10^3/uL Absolute Nucleated RBC (0.00-0.01) x10^3u/L Lymphocytes % (24.0-44.0) % Monocytes % (0.0-12.0) % Eosinophils % (0.00-5.0) % Basophils % (0.0-0.4) % Absolute Granulocytes (1.4-6.9) x10^3/uL Basophils # (0-0.4) x10^3/uL D-Dimer (0.0-0.50) mg/L Sodium 135 L (137-145) mmol/L Potassium 3.7 (3.5-5.1) mmol/L Chloride 103 (98-107) mmol/L Carbon Dioxide 25 (22-30) mmol/L Anion Gap 10.5 (5-15) MEQ/L BUN 42 H (7-17) mg/dL Creatinine 1.42 H (0.52-1.04) mg/dL Estimated GFR 37.6 ML/MIN Glucose 97 (74-106) mg/dL Lactic Acid (0.4-2.0) Calcium 8.6 (8.4-10.2) mg/dL Total Bilirubin (0.2-1.3) mg/dL AST (14-36) U/L ALT (0-35) U/L Alkaline Phosphatase (38-126) U/L Troponin I 0.033 0.034 (0.000-0.034) ng/mL NT-Pro-B Natriuret Pep (<300) pg/mL Serum Total Protein (6.3-8.2) g/dL Albumin (3.5-5.0) g/dL Influenza Type A Ag (NEGATIVE) Influenza Type B Ag (NEGATIVE) RSV (PCR) (NEGATIVE) SARS-CoV-2 (PCR) (NEGATIVE) - Radiology Impressions Radiology Exams & Impressions: Radiology Procedures Category Date Time Status CHEST 1 VIEW (PORTABLE) Stat Exams 05/29/23 14:18 Completed CHEST WITH CONTRAST [CT] Stat Exams 05/29/23 19:06 Completed - Other Procedures and Tests Respiratory Therapy 05/29/23 23:16 Oxygen Nasal Cannula 2 lpm Assessment/Plan (1) Pulmonary embolism Current Visit: Yes Status: Acute Assessment & Plan: ASSESSMENT 1. Acute Hypoxemic Respiratory Failure 2. Pulmonary Embolism 3. Non-ST Elevation Myocardial Infarction, Type II 4. Mild Hyponatremia 5. Anemia 6. Chronic Kidney Disease 7. Hypertension 8. Degenerative Joint Disease PLAN 1. Wean oxygen to maintain SaO2 > 90%; on 2L; will need home oxygen 2. Continue Lovenox BID - can transition to OAC in the AM 3. Needs Echo as outpatient 4. Resume cardiac medications 5. Resume pain medications 6. She is on steroids for a chart diagnosis of Polymalgia Rheumatica - needs Rheum follow-up Lovenox BID The entirety of this encounter was done via telemedicine Aguilar Ayala MD Pulmonary and Critical Care Medicine Code(s): I26.99 - OTHER PULMONARY 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 Telemedicine Encounter - Telemedicine Encounter Telemedicine Encounter: The entirety of this encounter was performed via Telemedicine"
[2023-05-30 05:32] LABS: Absolute Neutrophil Ct (ANC) 6.19 x10^3/uL (1.4-6.9); BASOPHIL % 0.7 % (0.0-0.4); Basophil (Absolute #) 0.06 x10^3/uL (0-0.4); Eosinophil (Absolute #) 0.16 x10^3/uL (0-0.5); Hematocrit 32.7 % (35-47); Hemoglobin 10.4 g/dL (12.0-16.0); IMMATURE GRAN % 1.2 % (0.00-0.4); Lymphocyte (Absolute #) 1.08 x10^3/uL (1.0-4.6); Lymphocytes % 13.4 % (24.0-44.0); Mean Cell Volume 86.1 fL (78-100); Mean Corpuscular Hemoglobin 27.4 pg (26-32); Mean Corpuscular Hgb Concent. 31.8 g/dL (32-36); Mean Platelet Volume 8.4 fL (7.5-11.0); Monocyte (Absolute #) 0.49 x10^3/uL (0.0-1.3); Monocytes % 6.1 % (0.0-12.0); Neutrophil % 76.6 % (36.0-66.0); Platelet Count 226 x10^3/uL (150-450); Red Cell Distribution Width 20.8 % (11.5-14.0); White Blood Count 8.1 x10^3/uL (4.0-10.5)
[2023-05-30 06:00] LABS: ALBUMIN 2.9 g/dL (3.5-5.0); BILIRUBIN,TOTAL 0.3 mg/dL (0.2-1.3); Calcium 8.4 mg/dL (8.4-10.2); Creatinine 1 1.12 mg/dL (0.52-1.04); EST GLOMERULAR FILTRATION RATE 49.5 ML/MIN; Potassium 3.4 mmol/L (3.5-5.1); Total Protein 5.1 g/dL (6.3-8.2)
[2023-05-30] MEDS ORDERED: BENTYL 10 MG PO SCH (07:30)
[2023-05-30] MEDS ORDERED: MEDICATION INTERVENTION MC SCH ×3 (07:45)
[2023-05-30] MEDS: BENTYL 20 MG PO SCH ×4 (07:47→21:08)
[2023-05-30] MEDS: DELTASONE 10 MG PO SCH (09:23)
[2023-05-30] MEDS: Protonix 40MG Tablet PO SCH (09:24)
[2023-05-30] MEDS: ENOXAPARIN SODIUM SQ SCH ×2 (09:24→21:09)
[2023-05-30] MEDS: CHLORTHALIDONE PO SCH (09:25)
[2023-05-30] MEDS: Sodium Chloride 0.9% 1000 ML 1,000 ML IV SCH ×2 (09:38→18:57)
[2023-05-30] MEDS ORDERED: NON-FORMULARY ITEM (Propylene Glycol/Peg 400 [Systane 0.3-0.4% Eye Drops] 15 ML Drops) OP SCH (10:00)
[2023-05-30] MEDS ORDERED: MIRTAZAPINE PO SCH (10:00)
[2023-05-30] MEDS ORDERED: ENALAPRIL MALEATE PO SCH (10:00)
[2023-05-30] MEDS ORDERED: NON-FORMULARY ITEM (Vilazodone Hcl [Viibryd] 1 EACH Tab.Ds.Pk) PO SCH (10:00)
[2023-05-30] MEDS ORDERED: NON-FORMULARY ITEM (Cyclosporine [Restasis Multidose] 5.5 ML Drops) OP SCH (10:00)
[2023-05-30] MEDS ORDERED: NON-FORMULARY ITEM (Omeprazole 40 MG) PO SCH (10:00)
[2023-05-30] MEDS: PATIENT OWN MEDICATION OP SCH ×7 (10:13→21:56)
[2023-05-30] MEDS: Vasotec 10 MG PO SCH ×2 (11:07→21:11)
[2023-05-30] MEDS: TYLENOL 325 MG PO PRN (11:28)
[2023-05-30] MEDS: DELTASONE 5 MG PO SCH (21:09)
[2023-05-30] MEDS: NORVASC 5 MG PO SCH (21:10)
[2023-05-30] MEDS: ZOCOR 20MG PO SCH (21:11)
[2023-05-30] MEDS: MIRTAZAPINE PO SCH (21:57)
[2023-05-30] MEDS ORDERED: ATORVASTATIN PO SCH (22:00)
[2023-05-30] MEDS ORDERED: CARBOXYMETHYLCELLULOSE SODIUM OP SCH (22:00)
[2023-05-30] MEDS ORDERED: [UNRECOGNIZED DRUG - OTHER] PO SCH (22:00)
[2023-05-30] MEDS ORDERED: AMLODIPINE PO SCH (22:00)
[2023-05-30] MEDS ORDERED: Artificial Tears 15 ML OP SCH (22:00)
[2023-05-31] MEDS: Sodium Chloride 0.9% 1000 ML 1,000 ML IV SCH ×2 (04:14→16:51)
[2023-05-31 05:49] LABS: Absolute Neutrophil Ct (ANC) 4.23 x10^3/uL (1.4-6.9); BASOPHIL % 0.4 % (0.0-0.4); Basophil (Absolute #) 0.02 x10^3/uL (0-0.4); Eosinophil % 0.9 % (0.00-5.0); Eosinophil (Absolute #) 0.05 x10^3/uL (0-0.5); Hematocrit 32.9 % (35-47); Hemoglobin 10.1 g/dL (12.0-16.0); IMMATURE GRAN # 0.12 x10^3u/L (0.00-0.03); IMMATURE GRAN % 2.1 % (0.00-0.4); Lymphocyte (Absolute #) 0.87 x10^3/uL (1.0-4.6); Lymphocytes % 15.4 % (24.0-44.0); Mean Corpuscular Hemoglobin 26.7 pg (26-32); Mean Corpuscular Hgb Concent. 30.7 g/dL (32-36); Mean Platelet Volume 8.4 fL (7.5-11.0); Monocyte (Absolute #) 0.35 x10^3/uL (0.0-1.3); Monocytes % 6.2 % (0.0-12.0); Platelet Count 235 x10^3/uL (150-450); Red Blood Count 3.78 x10^6/uL (4.1-5.4); White Blood Count 5.6 x10^3/uL (4.0-10.5)
--- NOTE | 2023-05-31 05:56 | PCM.NOTE ---
Date and Time: 05/31/23 0551 Subjective Assessment: MS. Lama is an 83-year-old white female patient of Dr. Roy with a pmhx of DDD, OA, depression/anxiety, migraines, HTN, peripheral neuropathy, and h/o ulcer who presented to the ER 05/30/23 with 3-week history of shortness of breath and admitted for findings on CT for PE, treated initially with lovenox and now Eliquis. Will Start Eliquis at 10mg po bid x 7 days, the 5mg po bid there after. Patient continues to be hypoxic with spo2 levels at 85% this morning. Patient will need home oxygen on d/c. Patient endorses continued shortness of breath, especially on exertion. She does not appear to be in distress but does state she feels like her SOB has not improved much since admission. Upon auscultation, fine crackles are noted to bilateral bases. - Review of Systems Constitutional: Fatigue, Other Eyes: No Symptoms Ears, Nose, & Throat: No Symptoms Respiratory: Cough, Short Of Breath Cardiac: No Symptoms Abdominal/Gastrointestinal: No Symptoms Genitourinary Symptoms: No Symptoms Musculoskeletal: No Symptoms Skin: No Symptoms Neurological: No Symptoms Psychological: No Symptoms Endocrine: No Symptoms Objective Exam General Appearance: mild distress Neurologic Exam: alert, oriented x 3, cooperative Skin Exam: normal color Eye Exam: PERRL Ears, Nose, Throat Exam: normal ENT inspection Neck Exam: normal inspection Respiratory Exam: crackles/rales Cardiovascular Exam: regular rate/rhythm, normal heart sounds Gastrointestinal/Abdomen Exam: soft, normal bowel sounds Extremity Exam: normal inspection OBJECTIVE DATA Vital Signs: Vital Signs - 24 hr Temp Pulse Resp BP Pulse Ox 05/31/23 04:00 88 05/31/23 00:00 97.3 F 92 H 16 108/62 92 L 05/30/23 20:00 97.1 F 94 H 16 111/61 97 05/30/23 15:46 97.6 F 98 H 16 101/60 94 L 05/30/23 11:25 98.9 F 112 H 16 132/70 92 L 05/30/23 07:42 95 05/30/23 06:51 97.6 F 113 H 16 128/70 92 L Pain Assessment - Last Documented Pain Intensity 0 Pain Scale Used 0-10 Pain Scale Intake and Output: Intake & Output 05/28/23 05/29/23 05/30/23 05/31/23 11:59 11:59 11:59 11:59 Intake Total 860 Output Total 600 1000 Balance -600 -140 Weight 74 kg Lab Results: Lab Results-Last 24 Hours 05/30/23 Range/Units 05:23 Sodium 136 L (137-145) mmol/L Potassium 3.4 L (3.5-5.1) mmol/L Chloride 106 (98-107) mmol/L Carbon Dioxide 26 (22-30) mmol/L Anion Gap 8.0 (5-15) MEQ/L BUN 32 H (7-17) mg/dL Creatinine 1.12 H (0.52-1.04) mg/dL Estimated GFR 49.5 ML/MIN Glucose 92 (74-106) mg/dL Calcium 8.4 (8.4-10.2) mg/dL Total Bilirubin 0.30 (0.2-1.3) mg/dL AST 30 (14-36) U/L ALT 25 (0-35) U/L Alkaline Phosphatase 67 (38-126) U/L Serum Total Protein 5.1 L (6.3-8.2) g/dL Albumin 2.9 L (3.5-5.0) g/dL Radiology Exams: Radiology Procedures Category Date Time Status CHEST 1 VIEW (PORTABLE) Stat Exams 05/29/23 14:18 Completed CHEST WITH CONTRAST [CT] Stat Exams 05/29/23 19:06 Completed Assessment/Plan (1) Pulmonary embolism Current Visit: Yes Status: Acute Assessment & Plan: -Supplemental oxygen, ABG if significant hypoxia -Spo2 @ 85<95>89 this morning -Start Eliquis 10mg po bid x 7 days,then 5mg po bid there after - Will need to check for Hereditary and Acquired causes of Thrombophilia as outpatient -Consider ECHO Code(s): I26.99 - OTHER PULMONARY 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 (2) Acute on chronic renal failure Current Visit: Yes Status: Acute Assessment & Plan: -baseline unknown, most recently at 1.20 in 11/19, now WNL at 0.89 Code(s): N17.9 - ACUTE KIDNEY FAILURE, UNSPECIFIED; N18.9 - CHRONIC KIDNEY DISEASE, UNSPECIFIED (3) Elevated d-dimer Current Visit: Yes Status: Acute Assessment & Plan: -Secondary to PE, see PE Code(s): R79.89 - OTHER SPECIFIED ABNORMAL FINDINGS OF BLOOD CHEMISTRY (4) Hypoxia Current Visit: Yes Status: Acute Assessment & Plan: -Secondary to PE -Supplemental oxygen, titrate for goal >92, patient will need home o2 on d/c -Avoid BiPap/CPAP Code(s): R09.02 - HYPOXEMIA
[2023-05-31] MEDS: BENTYL 20 MG PO SCH ×4 (06:17→21:45)
[2023-05-31 08:20] LABS: ALBUMIN 2.8 g/dL (3.5-5.0); ALKALINE PHOSPHATASE 66 U/L (38-126); ANION GAP 6.9 MEQ/L (5-15); BLOOD UREA NITROGEN 23 mg/dL (7-17); CHLORIDE 106 mmol/L (98-107); Calcium 8.4 mg/dL (8.4-10.2); Carbon Dioxide 29 mmol/L (22-30); Creatinine 1 0.89 mg/dL (0.52-1.04); EST GLOMERULAR FILTRATION RATE > 60.0 ML/MIN; Glucose 97 mg/dL (74-106); Potassium 3.6 mmol/L (3.5-5.1); SGOT/AST 33 U/L (14-36); SGPT/ALT 25 U/L (0-35); SODIUM 138 mmol/L (137-145)
[2023-05-31] MEDS: CHLORTHALIDONE PO SCH (09:14)
[2023-05-31] MEDS: DELTASONE 10 MG PO SCH (09:14)
[2023-05-31] MEDS: ELIQUIS 2.5 MG TABLET PO SCH ×2 (09:15→21:45)
[2023-05-31] MEDS: Vasotec 10 MG PO SCH ×2 (09:15→21:44)
[2023-05-31] MEDS: PATIENT OWN MEDICATION OP SCH ×7 (09:18→21:48)
[2023-05-31] MEDS: Protonix 40MG Tablet PO SCH (09:21)
[2023-05-31] MEDS: TYLENOL 325 MG PO PRN (11:51)
[2023-05-31] MEDS: NORVASC 5 MG PO SCH (21:44)
[2023-05-31] MEDS: ZOCOR 20MG PO SCH (21:44)
[2023-05-31] MEDS: DELTASONE 5 MG PO SCH (21:45)
[2023-05-31] MEDS: MIRTAZAPINE PO SCH (21:45)
[2023-06-01 04:50] LABS: Absolute Neutrophil Ct (ANC) 5.23 x10^3/uL (1.4-6.9); BASOPHIL % 0.3 % (0.0-0.4); Basophil (Absolute #) 0.02 x10^3/uL (0-0.4); Eosinophil % 0.6 % (0.00-5.0); Eosinophil (Absolute #) 0.04 x10^3/uL (0-0.5); Hematocrit 35.1 % (35-47); IMMATURE GRAN # 0.16 x10^3u/L (0.00-0.03); IMMATURE GRAN % 2.4 % (0.00-0.4); Lymphocyte (Absolute #) 0.98 x10^3/uL (1.0-4.6); Lymphocytes % 14.5 % (24.0-44.0); Mean Cell Volume 86.2 fL (78-100); Mean Corpuscular Hgb Concent. 31.3 g/dL (32-36); Mean Platelet Volume 8.3 fL (7.5-11.0); Monocyte (Absolute #) 0.33 x10^3/uL (0.0-1.3); Monocytes % 4.9 % (0.0-12.0); Neutrophil % 77.3 % (36.0-66.0); Platelet Count 284 x10^3/uL (150-450); Red Blood Count 4.07 x10^6/uL (4.1-5.4); Red Cell Distribution Width 19.9 % (11.5-14.0); White Blood Count 6.8 x10^3/uL (4.0-10.5)
[2023-06-01 05:05] LABS: ALBUMIN 3.1 g/dL (3.5-5.0); ALKALINE PHOSPHATASE 102 U/L (38-126); ANION GAP 10.3 MEQ/L (5-15); BLOOD UREA NITROGEN 23 mg/dL (7-17); CHLORIDE 106 mmol/L (98-107); Calcium 8.8 mg/dL (8.4-10.2); Carbon Dioxide 26 mmol/L (22-30); Creatinine 1 0.89 mg/dL (0.52-1.04); EST GLOMERULAR FILTRATION RATE > 60.0 ML/MIN; Glucose 119 mg/dL (74-106); Potassium 3.4 mmol/L (3.5-5.1); SGOT/AST 38 U/L (14-36); SGPT/ALT 33 U/L (0-35); SODIUM 138 mmol/L (137-145); Total Protein 5.4 g/dL (6.3-8.2)
[2023-06-01] MEDS: Klor Con PO SCH ×3 (05:30→11:07)
[2023-06-01 07:31] VITALS: RESP 16
[2023-06-01] MEDS: BENTYL 20 MG PO SCH ×2 (08:34→11:08)
[2023-06-01] MEDS: CHLORTHALIDONE PO SCH (08:40)
[2023-06-01] MEDS: ELIQUIS 2.5 MG TABLET PO SCH (08:41)
[2023-06-01] MEDS: Vasotec 10 MG PO SCH (08:42)
[2023-06-01] MEDS: Protonix 40MG Tablet PO SCH (08:43)
[2023-06-01] MEDS: DELTASONE 10 MG PO SCH (08:44)
[2023-06-01] MEDS: PATIENT OWN MEDICATION OP SCH ×3 (08:45→12:29)
[2023-06-01 11:54] VITALS: BP 125/72; PULSE 105; TEMP 97.7; O2SAT 94
--- NOTE | 2023-06-01 12:40 | PCM.DS ---
Discharge Summary Date of Admission: 05/29/23 22:20 Date of Discharge: 06/01/23 Admitting Physician: MAU PEÑA MD Primary Care Provider: JOHN STARKEY Allergies Allergies terbinafine HCl [From Lamisil] Allergy (Verified 05/29/23 14:26) AFFECTS [facility] Summary - Hospital Course Hospital Course: MS. Lama is an 83-year-old white female patient of Dr. Starkey with a pmhx of DDD, OA, depression/anxiety, migraines, HTN, peripheral neuropathy, and h/o ulcer who presented to the ER 05/30/23 with 3-week history of shortness of breath and admitted for findings on CT for PE, treated initially with lovenox and now Eliquis. Will Start Eliquis at 10mg po bid x 7 days, the 5mg po bid there after. Advised close follow up with pcp and pulmonology. Case management has set up home oxygen. -Latest Assessment and Plan: (1) Pulmonary embolism Current Visit: Yes Status: Acute Assessment & Plan: -Supplemental oxygen, ABG if significant hypoxia -Spo2 @ 85<95>89 this morning -Start Eliquis 10mg po bid x 7 days,then 5mg po bid there after - Will need to check for Hereditary and Acquired causes of Thrombophilia as outpatient -Consider ECHO Code(s): I26.99 - OTHER PULMONARY 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 (2) Acute on chronic renal failure Current Visit: Yes Status: Acute Assessment & Plan: -baseline unknown, most recently at 1.20 in 11/19, now WNL at 0.89 Code(s): N17.9 - ACUTE KIDNEY FAILURE, UNSPECIFIED; N18.9 - CHRONIC KIDNEY DISEASE, UNSPECIFIED (3) Elevated d-dimer Current Visit: Yes Status: Acute Assessment & Plan: -Secondary to PE, see PE Code(s): R79.89 - OTHER SPECIFIED ABNORMAL FINDINGS OF BLOOD CHEMISTRY (4) Hypoxia Current Visit: Yes Status: Acute Assessment & Plan: -Secondary to PE -Supplemental oxygen, titrate for goal >92, patient will need home o2 on d/c -Avoid BiPap/CPAP Code(s): R09.02 - HYPOXEMIA -New Diagnoses: Pulmonary embolism -New Medications: Eliquis -Medications Discontinued: none -Follow up: pcp/pulm -Results pending: none -Outpatient testing to order: none I spent 35 minutes [id number] with the patient on the day of discharge performing discharge exam, discussing hospital stay and discharge instructions with patient & caregivers, preparation of discharge records, prescriptions & referral forms and addressing any questions/concerns the patient had as documented above. - Vitals & Intake/Output Vital Signs: Vital Signs Temperature 97.7 F 06/01/23 11:53 Pulse Rate 105 H 06/01/23 11:53 Respiratory Rate 16 06/01/23 11:53 Blood Pressure 125/72 06/01/23 11:53 O2 Sat by Pulse Oximetry 94 L 06/01/23 11:53 Intake & Output: Intake & Output 05/30/23 05/31/23 06/01/23 06/02/23 11:59 11:59 11:59 11:59 Intake Total 1100 1200 Output Total 600 1200 800 Balance -600 -100 400 Weight 74 kg - Lab Result Diagrams: 06/01/23 04:43 06/01/23 09:50 Lab Results-Last 24 Hrs: Lab Results-Last 24 Hours 06/01/23 06/01/23 06/01/23 Range/Units 04:43 04:43 05:00 WBC 6.8 (4.0-10.5) x10^3/uL RBC 4.07 L (4.1-5.4) x10^6/uL Hgb 11.0 L (12.0-16.0) g/dL Hct 35.1 (35-47) % MCV 86.2 (78-100) fL MCH 27.0 (26-32) pg MCHC 31.3 L (32-36) g/dL RDW 19.9 H (11.5-14.0) % Plt Count 284 (150-450) x10^3/uL MPV 8.3 (7.5-11.0) fL Gran % 77.3 H (36.0-66.0) % Immature Gran % (Auto) 2.4 H (0.00-0.4) % Nucleat RBC Rel Count 0.0 (0.00-0.1) % Eos # (Auto) 0.04 (0-0.5) x10^3/uL Immature Gran # (Auto) 0.16 H (0.00-0.03) x10^3u/L Absolute Lymphs (auto) 0.98 L (1.0-4.6) x10^3/uL Absolute Monos (auto) 0.33 (0.0-1.3) x10^3/uL Absolute Nucleated RBC 0.00 (0.00-0.01) x10^3u/L Lymphocytes % 14.5 L (24.0-44.0) % Monocytes % 4.9 (0.0-12.0) % Eosinophils % 0.6 (0.00-5.0) % Basophils % 0.3 (0.0-0.4) % Absolute Granulocytes 5.23 (1.4-6.9) x10^3/uL Basophils # 0.02 (0-0.4) x10^3/uL Sodium 138 (137-145) mmol/L Potassium 3.4 L (3.5-5.1) mmol/L Chloride 106 (98-107) mmol/L Carbon Dioxide 26 (22-30) mmol/L Anion Gap 10.3 (5-15) MEQ/L BUN 23 H (7-17) mg/dL Creatinine 0.89 (0.52-1.04) mg/dL Estimated GFR > 60.0 ML/MIN Glucose 119 H (74-106) mg/dL Calcium 8.8 (8.4-10.2) mg/dL Magnesium 1.7 (1.6-2.3) mg/dL Total Bilirubin 0.20 (0.2-1.3) mg/dL AST 38 H (14-36) U/L ALT 33 (0-35) U/L Alkaline Phosphatase 102 (38-126) U/L Serum Total Protein 5.4 L (6.3-8.2) g/dL Albumin 3.1 L (3.5-5.0) g/dL 06/01/23 Range/Units 09:50 WBC (4.0-10.5) x10^3/uL RBC (4.1-5.4) x10^6/uL Hgb (12.0-16.0) g/dL Hct (35-47) % MCV (78-100) fL MCH (26-32) pg MCHC (32-36) g/dL RDW (11.5-14.0) % Plt Count (150-450) x10^3/uL MPV (7.5-11.0) fL Gran % (36.0-66.0) % Immature Gran % (Auto) (0.00-0.4) % Nucleat RBC Rel Count (0.00-0.1) % Eos # (Auto) (0-0.5) x10^3/uL Immature Gran # (Auto) (0.00-0.03) x10^3u/L Absolute Lymphs (auto) (1.0-4.6) x10^3/uL Absolute Monos (auto) (0.0-1.3) x10^3/uL Absolute Nucleated RBC (0.00-0.01) x10^3u/L Lymphocytes % (24.0-44.0) % Monocytes % (0.0-12.0) % Eosinophils % (0.00-5.0) % Basophils % (0.0-0.4) % Absolute Granulocytes (1.4-6.9) x10^3/uL Basophils # (0-0.4) x10^3/uL Sodium (137-145) mmol/L Potassium 4.3 D (3.5-5.1) mmol/L Chloride (98-107) mmol/L Carbon Dioxide (22-30) mmol/L Anion Gap (5-15) MEQ/L BUN (7-17) mg/dL Creatinine (0.52-1.04) mg/dL Estimated GFR ML/MIN Glucose (74-106) mg/dL Calcium (8.4-10.2) mg/dL Magnesium (1.6-2.3) mg/dL Total Bilirubin (0.2-1.3) mg/dL AST (14-36) U/L ALT (0-35) U/L Alkaline Phosphatase (38-126) U/L Serum Total Protein (6.3-8.2) g/dL Albumin (3.5-5.0) g/dL Micro Results-Entire Visit: Microbiology 05/29/23 14:49 Blood Culture - Preliminary Blood 05/29/23 14:52 Blood Culture - Preliminary Blood - Procedures and Test Procedures and Tests throughout Hospitalization: Therapy Orders & Screens 05/29/23 22:29 Respiratory Therapy Consult ONCE Comment: Reason For Exam: 05/29/23 23:16 Oxygen Nasal Cannula 2 lpm Comment: Diagnosis: pulmonary embolism 05/29/23 23:20 ST Screen per Nursing Assess ONCE Comment: Protocol Order Physician Instructions: Greater than [address] Admission Screening Reason For Exam: Triggered on Admission Diagnosis: pulmonary embolism CVA/Dyshpagia/Aphasia: No Cognitive Deficits: No Dehydration/Nutrition Deficit: No Reflux: No Oral-Motor Difficulties: No Pneumonia: Yes Group Home Resident: No Total Points: 5 Discharge Exam General Appearance: no apparent distress Neurologic Exam: alert, oriented x 3, cooperative Eye Exam: PERRL Ears, Nose, Throat Exam: normal ENT inspection Neck Exam: normal inspection Respiratory Exam: crackles/rales (3L 02) Cardiovascular Exam: regular rate/rhythm, normal heart sounds Gastrointestinal/Abdomen Exam: soft, normal bowel sounds Pelvic Exam: deferred Rectal Exam: deferred Back Exam: normal inspection Extremity Exam: normal inspection Skin Exam: normal color Final Diagnosis/Problem List - Final Discharge Diagnosis/Problem (1) Pulmonary embolism Current Visit: Yes Status: Acute Code(s): I26.99 - OTHER PULMONARY 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 (2) Acute on chronic renal failure Current Visit: Yes Status: Chronic Code(s): N17.9 - ACUTE KIDNEY FAILURE, UNSPECIFIED; N18.9 - CHRONIC KIDNEY DISEASE, UNSPECIFIED (3) Elevated d-dimer Current Visit: Yes Status: Acute Code(s): R79.89 - OTHER SPECIFIED ABNORMAL FINDINGS OF BLOOD CHEMISTRY (4) Hypoxia Current Visit: Yes Status: Acute Code(s): R09.02 - HYPOXEMIA - Discharge Prescriptions: New Apixaban [Eliquis] 10 mg PO BID 5 Days #20 tablet Apixaban [Eliquis] 5 mg PO BID 30 Days #60 tablet Continue Bentyl 10 mg PO ACHS Omeprazole 40 mg PO DAILY Enalapril Maleate 5 mg 20 mg PO BID Propylene Glycol/Peg 400 [Systane 0.3-0.4% Eye Drops] 1 drop OP QID Mirtazapine [Remeron] 15 mg PO DAILY Cyclosporine [Restasis Multidose] 1 drop OP BID Chlorthalidone 25 mg PO DAILY Potassium Chloride [Klor-Con 10] 10 meq PO QAM Amlodipine/Atorvastatin [Amlodipine-Atorvast 10-40 mg] 1 each PO HS Oxycodone / APAP 10/325 mg [Oxycodone-Acetaminophen 10-325] 1 tab PO BID PRN PRN Reason: Pain Vilazodone HCl [Viibryd] 40 mg PO DAILY Prednisone 5 mg [Deltasone 5 mg] 5 mg PO HS Prednisone 10 mg [Deltasone 10 mg] 10 mg PO DAILY Carboxymethylcellulose Sodium [Refresh Tears] 15 ml OP HS Instructions: Pulmonary Embolism (Blood Clot in the Lungs) (DC), Oxygen The rapy, Adult (DC), Apixaban Additional Instructions: WEAR 3L/NC AT ALL TIMES AT HOME CALL [facility] AT [phone] WHEN YOU LEAVE [facility], [facility] TO LET THEM KNOW YOU ARE HEADING HOME SO THEY CAN DELIVER YOUR HOME CONCENTRATOR Follow up with: JOHN STARKEY MD [Primary Care Provider] - 06/09/23 9:45 am ([place] [facility]) Forms: Discharge Instructions
== END 2023-06-01 13:46 | disposition home or self-care (01) | DRG 176 ==
LOC: ED 14:00 → MED SURG 22:20
PROVIDERS: ADMIT Internal Medicine Critical Care Medicine; ATTEND Internal Medicine Critical Care Medicine
DX: I26.99 Other pulmonary embolism without acute cor pulmonale (principal); E87.1 Hypo-osmolality and hyponatremia; I12.9 Hypertensive chronic kidney disease with stage 1 through stage 4 chronic kidney disease, or unspecified chronic kidney disease; N18.9 Chronic kidney disease, unspecified; R79.89 Other specified abnormal findings of blood chemistry; R09.02 Hypoxemia; M19.90 Unspecified osteoarthritis, unspecified site; D64.9 Anemia, unspecified; Z79.899 Other long term (current) drug therapy; Z20.828 Contact with and (suspected) exposure to other viral communicable diseases
CPT/HCPCS: 0241U; 36000; 36415; 71045; 71260; 80048; 80053; 83605; 83735; 83880; 84132; 84484; 85025; 85379; 87040; 93005; 93041; 94762; 96372; 96374; 99285; 99291; J1650; Q3014; A9270-GY

== ENCOUNTER 2023-07-07 18:49 | Observation (INO) | payer MEDICARE, OTHER ==
--- NOTE | 2023-07-07 19:40 | ERPHSYRPT ---
- History of Present Illness Time Seen by Provider: 07/07/23 19:00 Source: patient Exam Limitations: no limitations Patient Subjective Stated Complaint: "I had a Pulmonary embolism back around and I've been short of breath since then. My blood pressure has been low today under 100 systolic so I decided to come in." Triage Nursing Assessment: Pt presents to ER with complaints of shortness of breath and hypotension. Pt arrives by wheelchair and is alert and oriented x 3. Skin is pink, warm, and dry. Respirations are slightly labored. Noted some crackles on posterior, anterior breath sounds are clear. Complains of dry cough, intermittent. Pt denies any nausea, vomiting, or diarrhea. States feels lower extremities have been swollen. STEFANIA hose in place. Blood pressure is 110/60 upon triage. 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 Additionally patient has been experiencing some dizziness. Patient checked her blood pressure at home and observed she was hypotensive with a systolic of 100. Patient has been experiencing progressive shortness of breath since her PE diagnosis approximate ly 6 weeks ago. No associated nausea vomiting or diaphoresis. No trauma. No fever. Patient has been taking all medications as prescribed. Upon arrival to our ED patient was hypoxic. Patient does not normally require oxygen however since her PE diagnosis patient has had an oxygen supplementation requirement. Symptoms are progressive. Symptoms are moderate in intensity. No specific worsening improving factors. Patient voices no other complaints or concerns at this time. Timing/Duration: week(s) Activities at Onset: none Severity of Dyspnea-Max: moderate Severity of Dyspnea-Current: mild Modifying Factors: Improves With: activity Associated Symptoms: denies symptoms Allergies/Adverse Reactions: terbinafine HCl [From Lamisil] Allergy (Verified 07/07/23 19:05) AFFECTS LIVER Home Medications: Bentyl 10 mg PO ACHS 05/17/12 [History] Enalapril Maleate 5 mg 20 mg PO BID 05/17/12 [History] Omeprazole 40 mg PO DAILY 05/17/12 [History] Propylene Glycol/Peg 400 [Systane 0.3-0.4% Eye Drops] 1 drop OP QID 06/27/15 [History] Amlodipine/Atorvastatin [Amlodipine-Atorvast 10-40 mg] 1 each PO HS 05/29/23 [History] Carboxymethylcellulose Sodium [Refresh Tears] 15 ml OP HS 05/29/23 [History] Chlorthalidone 25 mg PO DAILY 05/29/23 [History] Cyclosporine [Restasis Multidose] 1 drop OP BID 05/29/23 [History] Mirtazapine [Remeron] 15 mg PO HS 05/29/23 [History] Oxycodone / APAP 10/325 mg [Oxycodone-Acetaminophen 10-325] 1 tab PO TID PRN 05/29/23 [History] Potassium Chloride [Klor-Con 10] 10 meq PO QAM 05/29/23 [History] Vilazodone HCl [Viibryd] 40 mg PO DAILY 05/29/23 [History] Hx Tetanus, Diphtheria Vaccination/Date Given: Yes Hx Influenza Vaccination/Date Given: No Hx Pneumococcal Vaccination/Date Given: Yes Immunizations Up to Date: Yes Travel Risk - International Travel Have you traveled outside of the country in past 3 weeks: No - Coronavirus Screening Are you exhibiting any of the following symptoms?: Yes Symptoms: Cough: New Onset, Shortness of Breath Close contact with a COVID-19 positive Pt in past 14-21 Days: No - Vaccine Status Have you recieved a Covid-19 vaccination: Yes Traffic [employer]: Moderna - Vaccination Dates Date of 2cond Vaccination (if applicable): [id number] - Review of Systems Constitutional: No Symptoms, No Fever, No Chills Eyes: No Symptoms Ears, Nose, & Throat: No Symptoms Respiratory: No Symptoms, No Cough, No Dyspnea Cardiac: No Symptoms, No Chest Pain, No Edema, No Syncope Abdominal/Gastrointestinal: No Symptoms, No Abdominal Pain, No Nausea, No Vomiting, No Diarrhea Genitourinary Symptoms: No Symptoms, No Dysuria Musculoskeletal: No Symptoms, No Back Pain, No Neck Pain Skin: No Symptoms, No Rash Neurological: No Symptoms, No Dizziness, No Focal Weakness, No Sensory Changes Psychological: No Symptoms Endocrine: No Symptoms Hematologic/Lymphatic: No Symptoms Immunological/Allergic: No Symptoms All Other Systems: Reviewed and Negative - Past Medical History Pertinent Past Medical History: Yes Neurological History: Migraines, Peripheral Neuropathy ENT History: No Pertinent History Cardiac History: Hypertension Respiratory History: Pneumonia, Pulmonary Embolism Endocrine Medical History: No Pertinent History Musculoskeletal History: Degenerative Disk Disease, Rheumatoid Arthritis GI Medical History: Ulcer History: No Pertinent History Psycho-Social History: Depression, Anxiety Female Reproductive Disorders: No Pertinent History Other Medical History: Back pain, buldging disc, wore a Lumbar brace. Had a pain shot. Leaky Valve. - Past Surgical History Past Surgical History: Yes Neuro Surgical History: No Pertinent History Cardiac: No Pertinent History Respiratory: No Pertinent History Gastrointestinal: Appendectomy Genitourinary: Other Musculoskeletal: No Pertinent History Female Surgical History: No Pertinent History Other Surgical History: BLADDER TIE UP, abdominoplasty, Lft wrist surgery after fx - Social History Smoking Status: Former smoker Exposure to second hand smoke: No Drug Use: none Patient Lives Alone: No - Nursing Vital Signs Nursing Vital Signs: Initial Vital Signs Temperature 97.6 F 07/07/23 18:52 Pulse Rate 100 H 07/07/23 18:52 Respiratory Rate 22 07/07/23 18:52 Blood Pressure 110/60 07/07/23 18:52 O2 Sat by Pulse Oximetry 88 L 07/07/23 18:52 Pain Scale Pain Intensity 0 - Physical Exam General Appearance: no apparent distress, alert Eye Exam: PERRL/EOMI Ears, Nose, Throat Exam: hearing grossly normal, normal ENT inspection, normal pharynx Neck Exam: normal inspection, supple Respiratory Exam: normal breath sounds, airway intact, crackles/rales (Crackles bilateral bases), No respiratory distress Cardiovascular/Chest Exam: normal heart sounds, regular rate/rhythm, normal peripheral pulses Abdominal/Gastrointestinal Exam: soft, No tenderness, No distention, No mass Extremity Exam: non-tender, normal range of motion, normal inspection, no calf tenderness, no pedal edema Neurologic Exam: alert, oriented x 3, cooperative, resolution rep II-XII nml as tested, sensation nml, No motor deficits Skin Exam: normal color, warm, No dry Lymphatic Exam: No adenopathy SpO2 Interpretation: normal SpO2: 96 O2 Delivery: Room Air - Course Nursing assessment & vital signs reviewed: Yes EKG Interpreted by Me: RATE (92), Sinus Rhythm, NORMAL AXIS, NORMAL INTERVALS (S1Q3T3) Ordered Tests: Active Orders 24 hr Category Date Time Status Epic Radiant Analyst STAT Care 07/07/23 19:28 Active EKG-ER Only STAT Care 07/07/23 19:27 Active IV Insertion STAT Care 07/07/23 19:27 Active Pulse Oximetry (ED) STAT Care 07/07/23 19:27 Active CHEST 1 VIEW (PORTABLE) Stat Exams 07/07/23 19:28 Taken CBC W DIFF Stat Lab 07/07/23 19:50 Completed CMP Stat Lab 07/07/23 19:50 Completed CULTURE,URINE Stat Lab 07/07/23 21:46 Received NT PRO BNPII Stat Lab 07/07/23 19:50 Completed TROPONIN Q4H Lab 07/07/23 19:50 Completed TROPONIN Q4H Lab 07/08/23 03:30 Ordered UA W/RFX UR CULTURE Stat Lab 07/07/23 21:46 Completed Medication Summary Generic Name Dose Route Start Last Admin Trade Name Freq PRN Reason Stop Dose Admin Sodium Chloride 1,000 mls @ 100 mls/hr 07/07/23 23:30 07/07/23 23:30 Sodium Chloride 0.9% 1000 Ml IV 08/06/23 23:29 100 mls/hr .Q10H NAKITA Administration Discontinued Medications Generic Name Dose Route Start Last Admin Trade Name Freq PRN Reason Stop Dose Admin Ceftriaxone Sodium/Dextrose 1 g in 50 mls @ 100 mls/hr 07/07/23 23:24 07/08/23 00:16 Rocephin 1 Gm-D5w 50 Ml Bag IV 07/07/23 23:53 Infused STAT STA Infusion Ceftriaxone Sodium/Dextrose Confirm 07/07/23 23:27 Rocephin 1 Gm-D5w 50 Ml Bag Administered 07/07/23 23:28 Dose 1 g in 50 mls @ ud IV .[facility] Lab/Rad Data: Laboratory Result Diagrams 07/07/23 19:50 07/07/23 19:50 Laboratory Results 07/07/23 07/07/23 07/07/23 Range/Units 21:46 19:50 19:50 WBC (4.0-10.5) x10^3/uL RBC (4.1-5.4) x10^6/uL Hgb (12.0-16.0) g/dL Hct (35-47) % MCV (78-100) fL MCH (26-32) pg MCHC (32-36) g/dL RDW (11.5-14.0) % Plt Count (150-450) x10^3/uL MPV (7.5-11.0) fL Gran % (36.0-66.0) % Immature Gran % (Auto) (0.00-0.4) % Nucleat RBC Rel Count (0.00-0.1) % Eos # (Auto) (0-0.5) x10^3/uL Immature Gran # (Auto) (0.00-0.03) x10^3u/L Absolute Lymphs (auto) (1.0-4.6) x10^3/uL Absolute Monos (auto) (0.0-1.3) x10^3/uL Absolute Nucleated RBC (0.00-0.01) x10^3u/L Lymphocytes % (24.0-44.0) % Monocytes % (0.0-12.0) % Eosinophils % (0.00-5.0) % Basophils % (0.0-0.4) % Absolute Granulocytes (1.4-6.9) x10^3/uL Basophils # (0-0.4) x10^3/uL Sodium (137-145) mmol/L Potassium (3.5-5.1) mmol/L Chloride (98-107) mmol/L Carbon Dioxide (22-30) mmol/L Anion Gap (5-15) MEQ/L BUN (7-17) mg/dL Creatinine (0.52-1.04) mg/dL Estimated GFR ML/MIN Glucose (74-106) mg/dL Calcium (8.4-10.2) mg/dL Total Bilirubin (0.2-1.3) mg/dL AST (14-36) U/L ALT (0-35) U/L Alkaline Phosphatase (38-126) U/L Troponin I < 0.012 (0.000-0.034) ng/mL NT-Pro-B Natriuret Pep 152 (<300) pg/mL Serum Total Protein (6.3-8.2) g/dL Albumin (3.5-5.0) g/dL Urine Color Yellow (Yellow) Urine Appearance Cloudy A (Clear) Urine pH 6.5 (4.6-8.0) Ur Specific [place] >=1.030 A (1.005-1.030) Urine Protein Trace A (Negative) Urine Glucose (UA) Negative (Negative) mg/dL Urine Ketones Trace A (Negative) Urine Blood Negative (Negative) Urine Nitrite Positive A (Negative) Urine Bilirubin Negative (Negative) Urine Urobilinogen 0.2 (0.2) mg/dL Ur Leukocyte Esterase Large A (Negative) U Hyaline Cast (Auto) 11-20 (0-2) /LPF Urine Microscopic RBC 0-2 (0-5) /HPF Urine Microscopic WBC >100 A (0-5) /HPF Ur Epithelial Cells Moderate A (None Seen) /HPF Urine Bacteria Many A (None Seen) /HPF Urine Culture Reflexed YES (NO) 07/07/23 07/07/23 07/07/23 Range/Units 19:50 19:50 00:00 WBC 8.6 (4.0-10.5) x10^3/uL RBC 3.23 L (4.1-5.4) x10^6/uL Hgb 8.7 L (12.0-16.0) g/dL Hct 29.1 L (35-47) % MCV 90.1 (78-100) fL MCH 26.9 (26-32) pg MCHC 29.9 L (32-36) g/dL RDW 14.8 H (11.5-14.0) % Plt Count 431 (150-450) x10^3/uL MPV 8.1 (7.5-11.0) fL Gran % 57.3 (36.0-66.0) % Immature Gran % (Auto) 0.9 H (0.00-0.4) % Nucleat RBC Rel Count 0.0 (0.00-0.1) % Eos # (Auto) 0.29 (0-0.5) x10^3/uL Immature Gran # (Auto) 0.08 H (0.00-0.03) x10^3u/L Absolute Lymphs (auto) 2.27 (1.0-4.6) x10^3/uL Absolute Monos (auto) 0.98 (0.0-1.3) x10^3/uL Absolute Nucleated RBC 0.00 (0.00-0.01) x10^3u/L Lymphocytes % 26.3 (24.0-44.0) % Monocytes % 11.4 (0.0-12.0) % Eosinophils % 3.4 (0.00-5.0) % Basophils % 0.7 (0.0-0.4) % Absolute Granulocytes 4.95 (1.4-6.9) x10^3/uL Basophils # 0.06 (0-0.4) x10^3/uL Sodium 140 (137-145) mmol/L Potassium 3.5 (3.5-5.1) mmol/L Chloride 102 (98-107) mmol/L Carbon Dioxide 35 H (22-30) mmol/L Anion Gap 6.0 (5-15) MEQ/L BUN 24 H (7-17) mg/dL Creatinine 1.34 H (0.52-1.04) mg/dL Estimated GFR 40.2 ML/MIN Glucose 112 H (74-106) mg/dL Calcium 8.1 L (8.4-10.2) mg/dL Total Bilirubin 0.20 (0.2-1.3) mg/dL AST 36 (14-36) U/L ALT 21 (0-35) U/L Alkaline Phosphatase 100 (38-126) U/L Troponin I < 0.012 (0.000-0.034) ng/mL NT-Pro-B Natriuret Pep (<300) pg/mL Serum Total Protein 5.7 L (6.3-8.2) g/dL Albumin 3.2 L (3.5-5.0) g/dL Urine Color (Yellow) Urine Appearance (Clear) Urine pH (4.6-8.0) Ur Specific [place] (1.005-1.030) Urine Protein (Negative) Urine Glucose (UA) (Negative) mg/dL Urine Ketones (Negative) Urine Blood (Negative) Urine Nitrite (Negative) Urine Bilirubin (Negative) Urine Urobilinogen (0.2) mg/dL Ur Leukocyte Esterase (Negative) U Hyaline Cast (Auto) (0-2) /LPF Urine Microscopic RBC (0-5) /HPF Urine Microscopic WBC (0-5) /HPF Ur Epithelial Cells (None Seen) /HPF Urine Bacteria (None Seen) /HPF Urine Culture Reflexed (NO) - Progress Progress: improved Air Movement: good Progress Note: Spoke to Dr. Wheat from [facility] at [phone]. He requested a repeat CTA chest. However our radiology department states that her GFR is too low and that obtaining a CTA chest would be against departmental policies. In light of the fact that patient is currently anticoagulated on Eliquis, there is no evidence of right heart strain, no elevated troponin, the S1Q3T3 observed on her EKG is an old finding, I do not feel a need to override our departmental policy at this time. Patient's shortness of breath may be attributed to her excessively low hemoglobin of 8.7 which is considerably lower than her baseline. 07/07/23 22:20 We were unable to obtain the CTA chest. Based on this Dr. Wheat of [facility] ER physician refused transfer. 07/07/23 22:41 Patient requested trying [place] for transfer. I spoke to Dr. García hospitalist at [facility] who accepts transfer at 11:18 PM. 07/07/23 23:25 Patient 83-year-old female presents to our ED with shortness of breath observed hypotension at home and some dizziness. Patient is on a diuretic. Patient has a known PE currently on Eliquis. EKG is normal sinus rhythm. Patient has an old S1Q3T3 change. This initially appeared to be right heart strain however was observed that this finding was also seen on EKG completed in 2018. Troponin negative. No evidence of right heart strain. Patient's shortness of breath likely due to anemia, hemoglobin of 8.7. Patient has had a 2-1/2 g drop of hemoglobin in approximately 1 month. This may be related to the initiation of Eliquis possible occult GI blood loss. Patient denies any gross blood/hematochezia. Patient's work-up reveals a dehydration with an elevated creatinine. Specific gravity elevated as well. Patient has no urinary symptomology however urinalysis reveals a urinary tract infection. Patient received a gram of Rocephin in our ED. Patient requested transfer to [facility]. I spoke to Dr. García who accepts transfer. However there are no beds available currently. Patient will be admitted to the floor in the meantime. Case discussed with Dr. Guzman, hospitalist who accepts admission at 1:26 AM. Plan of care discussed with patient. She agrees to admission at [facility] for further evaluation and treatment. Portions of this note were created with voice recognition technology. There may be grammatical, spelling, punctuation or sound alike errors Complexity of problems addressed as moderate acute complicated No critical care time Complexity of data reviewed and analyzed is extensive. Test ordered test reviewed. Laboratory and imaging findings analyzed and clinically correlated to history and physical examination. Management and plan of care discussed with Dr. Wheat who declined transfer. Management and plan of care discussed with Dr. García at [facility] who accepts transfer however no beds are available. Management and plan of care discussed with Dr. Guzman hospitalist at [facility] who accepts admission. Risk of complication or risk morbidity/mortality of patient management is high. Patient requires hospitalization for further evaluation and treatment. Time spent to admit patient is approximately 20 minutes. Vital stable. Plan of care established for shared decision making. Patient reassessed. Vital stable. Patient resting comfortably. Patient is not hypoxic at rest. She has no active complaints at this time. Bridging orders entered Portions of this note were created with voice recognition technology. There may be grammatical, spelling, punctuation or sound alike errors 07/08/23 01:39 Blood Culture(s) Obtained: No Antibiotics given: No Discussed with Dr.: Robles (Dr. Guzman accepts admission at 1:26 AM) Counseled pt/family regarding: lab results, diagnosis, rad results - Departure Departure Disposition: Observation Clinical Impression: Shortness of breath, Normocytic anemia, Symptomatic anemia, Hypoxia, Acute renal injury, Dehydration, Dizziness, Urinary tract infection Condition: Stable Critical Care Time: No Referrals: JOHN STARKEY MD [Primary Care Provider] - Follow up/PCP as directed
[2023-07-07 19:52] LABS: Absolute Neutrophil Ct (ANC) 4.95 x10^3/uL (1.4-6.9); BASOPHIL % 0.7 % (0.0-0.4); Basophil (Absolute #) 0.06 x10^3/uL (0-0.4); Eosinophil % 3.4 % (0.00-5.0); Eosinophil (Absolute #) 0.29 x10^3/uL (0-0.5); Hematocrit 29.1 % (35-47); Hemoglobin 8.7 g/dL (12.0-16.0); IMMATURE GRAN # 0.08 x10^3u/L (0.00-0.03); IMMATURE GRAN % 0.9 % (0.00-0.4); Lymphocyte (Absolute #) 2.27 x10^3/uL (1.0-4.6); Lymphocytes % 26.3 % (24.0-44.0); Mean Cell Volume 90.1 fL (78-100); Mean Corpuscular Hemoglobin 26.9 pg (26-32); Mean Corpuscular Hgb Concent. 29.9 g/dL (32-36); Mean Platelet Volume 8.1 fL (7.5-11.0); Monocyte (Absolute #) 0.98 x10^3/uL (0.0-1.3); Monocytes % 11.4 % (0.0-12.0); Neutrophil % 57.3 % (36.0-66.0); Platelet Count 431 x10^3/uL (150-450); Red Blood Count 3.23 x10^6/uL (4.1-5.4); Red Cell Distribution Width 14.8 % (11.5-14.0); White Blood Count 8.6 x10^3/uL (4.0-10.5)
[2023-07-07 20:17] LABS: ALBUMIN 3.2 g/dL (3.5-5.0); BILIRUBIN,TOTAL 0.2 mg/dL (0.2-1.3); Calcium 8.1 mg/dL (8.4-10.2); Creatinine 1 1.34 mg/dL (0.52-1.04); EST GLOMERULAR FILTRATION RATE 40.2 ML/MIN; Potassium 3.5 mmol/L (3.5-5.1); Total Protein 5.7 g/dL (6.3-8.2)
[2023-07-07 22:16] LABS: Appearance Cloudy (Clear); Bacteria Many /HPF (None Seen); Bilirubin Negative (Negative); Blood Negative (Negative); Epithelial Cells Moderate /HPF (None Seen); Glucose, Urine Negative (Negative); Ketones Trace (Negative); Leukocyte Esterase Large (Negative); Nitrite Positive (Negative); Ph 6.5 (4.6-8.0); Protein,Urine Dip Trace (Negative); RBC 0-2 /HPF (0-5); Specific Gravity >=1.030 (1.005-1.030); Urobilinogen 0.2 mg/dL (0.2); WBC >100 /HPF (0-5)
[2023-07-07 22:28] LABS: ADD URINE CULTURE? YES (NO)
[2023-07-07] MEDS ORDERED: ROCEPHIN 1 Gm-D5w 50 ml Bag** 1 G/50 ML IVPB IV STA (23:24)
[2023-07-07] MEDS ORDERED: ROCEPHIN 1 Gm-D5w 50 ml Bag** 1 G/50 ML IVPB IV ONE (23:27)
[2023-07-07] MEDS: Sodium Chloride 0.9% 1000 ML 1,000 ML IV SCH (23:30)
--- NOTE | 2023-07-08 02:08 | PCM.HP ---
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 Has intermittent cough, usually dry. And today, she had noticed her SBP was 100, thus she was concern and took herself in for eval. In ER, her O2 sat was found to be 88% on RA and her BP was 110/60 on arrival. HR normal. New finding of Hgb in the 8s (was in the 10s). She wanted to be transferred to another hospital so she can see her ict help desk technician, but that hospital does not have bed available until tomorrow. She is coming in for management of SOB, low BP and worsening anemia. She has O2 at home since the PE diagnosis at 2Ls [place]. She is now on 2Ls [place] O2. She states she has been eating/drinking "fine" - Review of Systems Constitutional: No Symptoms Eyes: No Symptoms Ears, Nose, & Throat: No Symptoms Respiratory: Short Of Breath Cardiac: No Symptoms Abdominal/Gastrointestinal: No Symptoms Genitourinary Symptoms: No Symptoms Musculoskeletal: No Symptoms Skin: No Symptoms Neurological: No Symptoms Psychological: No Symptoms Endocrine: No Symptoms Immunological/Allergic: No Symptoms Medications & Allergies Home Medications: Home Medication List Bentyl 10 mg PO ACHS 05/17/12 [History Confirmed 07/07/23] Enalapril Maleate 5 mg 20 mg PO BID 05/17/12 [History Confirmed 07/07/23] Omeprazole 40 mg PO DAILY 05/17/12 [History Confirmed 07/07/23] Propylene Glycol/Peg 400 [Systane 0.3-0.4% Eye Drops] 1 drop OP QID 06/27/15 [History Confirmed 07/07/23] Amlodipine/Atorvastatin [Amlodipine-Atorvast 10-40 mg] 1 each PO HS 05/29/23 [History Confirmed 07/07/23] Carboxymethylcellulose Sodium [Refresh Tears] 15 ml OP HS 05/29/23 [History Confirmed 07/07/23] Chlorthalidone 25 mg PO DAILY 05/29/23 [History Confirmed 07/07/23] Cyclosporine [Restasis Multidose] 1 drop OP BID 05/29/23 [History Confirmed 07/07/23] Mirtazapine [Remeron] 15 mg PO HS 05/29/23 [History Confirmed 07/07/23] Oxycodone / APAP 10/325 mg [Oxycodone-Acetaminophen 10-325] 1 tab PO TID PRN 05/29/23 [History Confirmed 07/07/23] Potassium Chloride [Klor-Con 10] 10 meq PO QAM 05/29/23 [History Confirmed 07/07/23] Vilazodone HCl [Viibryd] 40 mg PO DAILY 05/29/23 [History Confirmed 07/07/23] Apixaban [Eliquis] 5 mg PO BID 30 Days #60 tablet 06/01/23 [Rx Confirmed 07/07/23] Allergies/Adverse Reactions: Allergies Allergy/AdvReac Type Severity Reaction Status Date / Time terbinafine HCl Allergy Verified 07/07/23 19:05 [From Lamisil] - Past Medical History Past Medical History: Yes Neurological History: Migraines, Peripheral Neuropathy ENT History: No Pertinent History Cardiac History: Hypertension Respiratory History: Pneumonia, Pulmonary Embolism Endocrine Medical History: No Pertinent History Musculoskelatal History: Degenerative Disk Disease, Rheumatoid Arthritis GI Medical History: Ulcer History: No Pertinent History Pyscho-Social History: Depression, Anxiety Reproductive Disorders: No Pertinent History Comment: Back pain, buldging disc, wore a Lumbar brace. Had a pain shot. Leaky Valve. - Past Surgical History Past Surgical History: Yes Neuro Surgical History: No Pertinent History Cardiac History: No Pertinent History Respiratory Surgery: No Pertinent History GI Surgical History: Appendectomy Genitourinary Surgical Hx: Other Musculskeletal Surgical Hx: No Pertinent History Female Surgical History: No Pertinent History Other Surgical History: BLADDER TIE UP, abdominoplasty, Lft wrist surgery after fx - Social History Smoking Status: Former smoker Exposure to second hand smoke: No Alcohol: Occasionally Drug Use: none Significant Family History: no pertinent family hx - Physical Exam Vital Signs: Vital Signs - 24 hr Temp Pulse Resp BP BP Pulse Ox 07/08/23 01:45 96 07/08/23 01:30 92 H 28 H 108/48 95 07/08/23 01:00 84 25 H 106/57 98 07/08/23 00:30 92 H 28 H 111/56 98 07/08/23 00:01 87 29 H 107/57 95 07/07/23 23:30 91 H 23 118/79 07/07/23 23:00 90 23 114/80 98 07/07/23 22:30 83 25 H 112/74 97 07/07/23 22:00 86 27 H 116/64 96 07/07/23 21:30 84 29 H 122/67 96 07/07/23 21:00 85 28 H 104/54 95 07/07/23 20:30 87 22 117/63 95 07/07/23 20:00 86 31 H 101/62 95 07/07/23 19:48 97 07/07/23 19:47 90 18 105/60 98 07/07/23 18:54 89 21 110/60 95 07/07/23 18:52 97.6 F 100 H 26 H 110/60 96 General Appearance: no apparent distress Neurologic Exam: alert, oriented x 3, cooperative Eye Exam: PERRL/EOMI, eyes nml inspection Ears, Nose, Throat Exam: normal ENT inspection Neck Exam: normal inspection, non-tender, supple Respiratory Exam: normal breath sounds, lungs clear, airway intact Cardiovascular Exam: regular rate/rhythm, normal heart sounds Gastrointestinal/Abdomen Exam: soft, normal bowel sounds Pelvic Exam: deferred Rectal Exam: deferred Back Exam: normal inspection Extremity Exam: normal inspection Skin Exam: normal color, warm, dry Results - Labs Lab/Micro Results: Lab Results-Last 24 Hours 07/07/23 07/07/23 07/07/23 Range/Units 00:00 19:50 19:50 WBC 8.6 (4.0-10.5) x10^3/uL RBC 3.23 L (4.1-5.4) x10^6/uL Hgb 8.7 L (12.0-16.0) g/dL Hct 29.1 L (35-47) % MCV 90.1 (78-100) fL MCH 26.9 (26-32) pg MCHC 29.9 L (32-36) g/dL RDW 14.8 H (11.5-14.0) % Plt Count 431 (150-450) x10^3/uL MPV 8.1 (7.5-11.0) fL Gran % 57.3 (36.0-66.0) % Immature Gran % (Auto) 0.9 H (0.00-0.4) % Nucleat RBC Rel Count 0.0 (0.00-0.1) % Eos # (Auto) 0.29 (0-0.5) x10^3/uL Immature Gran # (Auto) 0.08 H (0.00-0.03) x10^3u/L Absolute Lymphs (auto) 2.27 (1.0-4.6) x10^3/uL Absolute Monos (auto) 0.98 (0.0-1.3) x10^3/uL Absolute Nucleated RBC 0.00 (0.00-0.01) x10^3u/L Lymphocytes % 26.3 (24.0-44.0) % Monocytes % 11.4 (0.0-12.0) % Eosinophils % 3.4 (0.00-5.0) % Basophils % 0.7 (0.0-0.4) % Absolute Granulocytes 4.95 (1.4-6.9) x10^3/uL Basophils # 0.06 (0-0.4) x10^3/uL Sodium 140 (137-145) mmol/L Potassium 3.5 (3.5-5.1) mmol/L Chloride 102 (98-107) mmol/L Carbon Dioxide 35 H (22-30) mmol/L Anion Gap 6.0 (5-15) MEQ/L BUN 24 H (7-17) mg/dL Creatinine 1.34 H (0.52-1.04) mg/dL Estimated GFR 40.2 ML/MIN Glucose 112 H (74-106) mg/dL Calcium 8.1 L (8.4-10.2) mg/dL Total Bilirubin 0.20 (0.2-1.3) mg/dL AST 36 (14-36) U/L ALT 21 (0-35) U/L Alkaline Phosphatase 100 (38-126) U/L Troponin I < 0.012 (0.000-0.034) ng/mL NT-Pro-B Natriuret Pep (<300) pg/mL Serum Total Protein 5.7 L (6.3-8.2) g/dL Albumin 3.2 L (3.5-5.0) g/dL Urine Color (Yellow) Urine Appearance (Clear) Urine pH (4.6-8.0) Ur Specific [place] (1.005-1.030) Urine Protein (Negative) Urine Glucose (UA) (Negative) mg/dL Urine Ketones (Negative) Urine Blood (Negative) Urine Nitrite (Negative) Urine Bilirubin (Negative) Urine Urobilinogen (0.2) mg/dL Ur Leukocyte Esterase (Negative) U Hyaline Cast (Auto) (0-2) /LPF Urine Microscopic RBC (0-5) /HPF Urine Microscopic WBC (0-5) /HPF Ur Epithelial Cells (None Seen) /HPF Urine Bacteria (None Seen) /HPF Urine Culture Reflexed (NO) 07/07/23 07/07/23 07/07/23 Range/Units 19:50 19:50 21:46 WBC (4.0-10.5) x10^3/uL RBC (4.1-5.4) x10^6/uL Hgb (12.0-16.0) g/dL Hct (35-47) % MCV (78-100) fL MCH (26-32) pg MCHC (32-36) g/dL RDW (11.5-14.0) % Plt Count (150-450) x10^3/uL MPV (7.5-11.0) fL Gran % (36.0-66.0) % Immature Gran % (Auto) (0.00-0.4) % Nucleat RBC Rel Count (0.00-0.1) % Eos # (Auto) (0-0.5) x10^3/uL Immature Gran # (Auto) (0.00-0.03) x10^3u/L Absolute Lymphs (auto) (1.0-4.6) x10^3/uL Absolute Monos (auto) (0.0-1.3) x10^3/uL Absolute Nucleated RBC (0.00-0.01) x10^3u/L Lymphocytes % (24.0-44.0) % Monocytes % (0.0-12.0) % Eosinophils % (0.00-5.0) % Basophils % (0.0-0.4) % Absolute Granulocytes (1.4-6.9) x10^3/uL Basophils # (0-0.4) x10^3/uL Sodium (137-145) mmol/L Potassium (3.5-5.1) mmol/L Chloride (98-107) mmol/L Carbon Dioxide (22-30) mmol/L Anion Gap (5-15) MEQ/L BUN (7-17) mg/dL Creatinine (0.52-1.04) mg/dL Estimated GFR ML/MIN Glucose (74-106) mg/dL Calcium (8.4-10.2) mg/dL Total Bilirubin (0.2-1.3) mg/dL AST (14-36) U/L ALT (0-35) U/L Alkaline Phosphatase (38-126) U/L Troponin I < 0.012 (0.000-0.034) ng/mL NT-Pro-B Natriuret Pep 152 (<300) pg/mL Serum Total Protein (6.3-8.2) g/dL Albumin (3.5-5.0) g/dL Urine Color Yellow (Yellow) Urine Appearance Cloudy A (Clear) Urine pH 6.5 (4.6-8.0) Ur Specific [place] >=1.030 A (1.005-1.030) Urine Protein Trace A (Negative) Urine Glucose (UA) Negative (Negative) mg/dL Urine Ketones Trace A (Negative) Urine Blood Negative (Negative) Urine Nitrite Positive A (Negative) Urine Bilirubin Negative (Negative) Urine Urobilinogen 0.2 (0.2) mg/dL Ur Leukocyte Esterase Large A (Negative) U Hyaline Cast (Auto) 11-20 (0-2) /LPF Urine Microscopic RBC 0-2 (0-5) /HPF Urine Microscopic WBC >100 A (0-5) /HPF Ur Epithelial Cells Moderate A (None Seen) /HPF Urine Bacteria Many A (None Seen) /HPF Urine Culture Reflexed YES (NO) - Radiology Impressions Radiology Exams & Impressions: Radiology Procedures Category Date Time Status CHEST 1 VIEW (PORTABLE) Stat Exams 07/07/23 19:28 Taken Assessment/Plan (1) Shortness of breath Current Visit: Yes Status: Acute Assessment & Plan: Has hypoxia, 88% on 2Ls [place] O2 on arrival, but has since improved, and now back to her home dose of 2Ls. She has been on 2Ls [place] O2 at home since her PE diagnosis Has hx of PE and is taking her Eliquis faithfully. CXR clear. BNP normal. EKG unchanged from previous. But she has worsening anemia, Hgb went from 10s to 8s. So this could be the reason she is more SOB than usual. Will support with O2 protocol to keep O2 sat > 92%. Trops negative x 2 Code(s): R06.02 - SHORTNESS OF BREATH (2) Normocytic anemia Current Visit: Yes Status: Acute Assessment & Plan: Symptomatic anemia. Hgb 8.7, was previously 10s. She is on Eliquis. So concern for blood loss, GIB - she denies black or bloody stools. Will check stool guaiac to be sure. Monitor H/H. No tachycardia, but she came in with c/o low BP, and SBP was 110 Code(s): D64.9 - ANEMIA, UNSPECIFIED (3) Urinary tract infection Current Visit: Yes Status: Acute Assessment & Plan: UA noted, > 100 WBCs, + nitrite and LE. Starting Rocephin 1gm IV daily. Urine culture pending Code(s): N39.0 - URINARY TRACT INFECTION, SITE NOT SPECIFIED (4) Acute renal injury Current Visit: Yes Status: Acute Assessment & Plan: BUN 20s, Cr 1.34. BP being low, she may be dehydrated. She does have CKD 2. Holding Lisinopril, and other BP meds. Allow BP to come up some. IVF with NS at 60ml/hr. BNP 150s, CXR clear. Dose all meds accordingly. Will monitor Cr trend Code(s): N17.9 - ACUTE KIDNEY FAILURE, UNSPECIFIED (5) Dehydration Current Visit: Yes Status: Acute Assessment & Plan: As above. Code(s): E86.0 - DEHYDRATION (6) Pulmonary embolism Current Visit: No Status: Acute Assessment & Plan: Will continue Eliquis BID for now. No sign of heart strain. Trops negative x 2, BNP 150s Code(s): I26.99 - OTHER PULMONARY 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 Telemedicine Encounter - Telemedicine Encounter Telemedicine Encounter: The entirety of this encounter was performed via Telemedicine" Pt gave me verbal consent to have this telemedicine visit
[2023-07-08] MEDS ORDERED: PHENERGAN 25 MG PO PRN (02:17)
[2023-07-08] MEDS ORDERED: DUONEB 0.5-3 MG/3 ml Neb IH PRN ×2 (02:17→06:45)
[2023-07-08] MEDS ORDERED: TYLENOL 325 MG PO PRN (02:17)
[2023-07-08] MEDS ORDERED: OXYCODONE-ACETAMINOPHEN 10-325 PO PRN (02:20)
[2023-07-08 05:21] LABS: Hematocrit 28.5 % (35-47); Hemoglobin 8.5 g/dL (12.0-16.0); Mean Cell Volume 89.9 fL (78-100); Mean Corpuscular Hemoglobin 26.8 pg (26-32); Mean Corpuscular Hgb Concent. 29.8 g/dL (32-36); Mean Platelet Volume 8.3 fL (7.5-11.0); Platelet Count 477 x10^3/uL (150-450); Red Blood Count 3.17 x10^6/uL (4.1-5.4); Red Cell Distribution Width 14.8 % (11.5-14.0); White Blood Count 10.2 x10^3/uL (4.0-10.5)
[2023-07-08 05:27] LABS: ANION GAP 10.2 MEQ/L (5-15); BILIRUBIN,TOTAL 0.2 mg/dL (0.2-1.3); Calcium 8.4 mg/dL (8.4-10.2); Creatinine 1 1.1 mg/dL (0.52-1.04); EST GLOMERULAR FILTRATION RATE 50.5 ML/MIN; Potassium 3.5 mmol/L (3.5-5.1); Total Protein 5.3 g/dL (6.3-8.2)
[2023-07-08] MEDS ORDERED: BENTYL 20 MG ONE (06:44)
[2023-07-08] MEDS: BENTYL 20 MG PO SCH ×4 (07:00→21:11)
[2023-07-08] MEDS ORDERED: MEDICATION INTERVENTION MC SCH ×4 (07:15)
[2023-07-08] MEDS ORDERED: BENTYL 10 MG PO SCH (07:30)
--- NOTE | 2023-07-08 08:43 | XRAY ---
Indication: Short of breath. Comparison: May 29, 2023 Portable apical lordotic now demonstrates minimal bibasilar infiltrates versus atelectasis. Stable cardiomegaly, hiatal hernia, and right mid lung calcified granuloma. Bony thorax intact again with osteopenia.
[2023-07-08] MEDS: ELIQUIS 2.5 MG TABLET PO SCH ×2 (09:31→21:11)
[2023-07-08] MEDS: Protonix 40MG Tablet PO SCH (09:31)
[2023-07-08] MEDS: PATIENT OWN MEDICATION OP SCH ×5 (09:33→21:13)
[2023-07-08] MEDS: PATIENT OWN MEDICATION PO SCH (09:44)
[2023-07-08] MEDS ORDERED: NON-FORMULARY ITEM (Apixaban [Eliquis] 5 MG Tablet) PO SCH (10:00)
[2023-07-08] MEDS ORDERED: NON-FORMULARY ITEM (Cyclosporine [Restasis Multidose] 5.5 ML Drops) OP SCH (10:00)
[2023-07-08] MEDS ORDERED: NON-FORMULARY ITEM (Omeprazole 40 MG) PO SCH (10:00)
[2023-07-08] MEDS ORDERED: NON-FORMULARY ITEM (Vilazodone Hcl [Viibryd] 1 EACH Tab.Ds.Pk) PO SCH (10:00)
[2023-07-08] MEDS ORDERED: NON-FORMULARY ITEM (Propylene Glycol/Peg 400 [Systane 0.3-0.4% Eye Drops] 15 ML Drops) OP SCH (10:00)
[2023-07-08] MEDS: Sodium Chloride 0.9% 1000 ML 1,000 ML IV SCH (10:46)
[2023-07-08] MEDS ORDERED: Mylicon 80MG PO PRN (12:36)
[2023-07-08 17:05] LABS: Iron 31 ug/dL (37-170); Iron Saturation 8 % (20-39); TIBC 389 ug/dL (265-462)
[2023-07-08 17:40] LABS: Ferritin 14.7 ng/mL (11.1-264)
[2023-07-08] MEDS ORDERED: MIRTAZAPINE PO SCH (22:00)
[2023-07-08] MEDS ORDERED: PATIENT OWN MEDICATION OP SCH (22:00)
[2023-07-08] MEDS ORDERED: ROCEPHIN 1 Gm-D5w 50 ml Bag** 1 G/50 ML IVPB IV SCH (22:00)
[2023-07-08] MEDS ORDERED: CARBOXYMETHYLCELLULOSE SODIUM OP SCH (22:00)
[2023-07-09 04:44] LABS: Hematocrit 28.2 % (35-47); Hemoglobin 8.4 g/dL (12.0-16.0); Mean Cell Volume 89.5 fL (78-100); Mean Corpuscular Hemoglobin 26.7 pg (26-32); Mean Corpuscular Hgb Concent. 29.8 g/dL (32-36); Mean Platelet Volume 8.2 fL (7.5-11.0); Platelet Count 466 x10^3/uL (150-450); Red Blood Count 3.15 x10^6/uL (4.1-5.4); Red Cell Distribution Width 14.8 % (11.5-14.0)
[2023-07-09 05:28] LABS: ALBUMIN 3.1 g/dL (3.5-5.0); ALKALINE PHOSPHATASE 98 U/L (38-126); ANION GAP 6.6 MEQ/L (5-15); BLOOD UREA NITROGEN 18 mg/dL (7-17); CHLORIDE 105 mmol/L (98-107); Calcium 8.2 mg/dL (8.4-10.2); Carbon Dioxide 34 mmol/L (22-30); Creatinine 1 0.92 mg/dL (0.52-1.04); EST GLOMERULAR FILTRATION RATE > 60.0 ML/MIN; Glucose 88 mg/dL (74-106); Potassium 3.2 mmol/L (3.5-5.1); SGOT/AST 35 U/L (14-36); SGPT/ALT 20 U/L (0-35); SODIUM 142 mmol/L (137-145); Total Protein 5.6 g/dL (6.3-8.2)
[2023-07-09 07:01] VITALS: PULSE 91; RESP 21; TEMP 97.1; O2SAT 98
[2023-07-09] MEDS: BENTYL 20 MG PO SCH ×2 (07:43→11:45)
[2023-07-09] MEDS ORDERED: Klor Con PO ONE (08:00)
[2023-07-09] MEDS ORDERED: FEOSOL 325 MG PO SCH (10:00)
[2023-07-09] MEDS ORDERED: Levofloxacin 500MG/100ML D5W 500 MG/100 ML BAG IV SCH (10:00)
[2023-07-09] MEDS: Protonix 40MG Tablet PO SCH (10:17)
[2023-07-09] MEDS: ELIQUIS 2.5 MG TABLET PO SCH (10:18)
[2023-07-09] MEDS: PATIENT OWN MEDICATION PO SCH (10:19)
[2023-07-09] MEDS: PATIENT OWN MEDICATION OP SCH ×2 (10:20→10:22)
[2023-07-09] MEDS: Levofloxacin 500MG/100ML D5W 500 MG/100 ML BAG IV SCH ×2 (10:22→10:37)
[2023-07-09 11:22] LABS: IFOB TEST RESULTS POSITIVE (NEGATIVE)
[2023-07-09 11:35] VITALS: BP 122/65
--- NOTE | 2023-07-09 11:46 | PCM.DS ---
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 Has intermittent cough, usually dry. And today, she had noticed her SBP was 100, thus she was concern and took herself in for eval. In ER, her O2 sat was found to be 88% on RA and her BP was 110/60 on arrival. HR normal. New finding of Hgb in the 8s (was in the 10s). She wanted to be transferred to another hospital so she can see her boarding room fixer, but that hospital does not have bed available until tomorrow. She is coming in for management of SOB, low BP and worsening anemia. She has O2 at home since the PE diagnosis at 2Ls NC. She is now on 2Ls NC O2. She states she has been eating/drinking "fine" 07/09/23 Pt resting in bed. Lab work for anemia shows she has iron deficiency anemia. Occult stool sent to lab before ferrous sulfate started. Occult stool +. She reports she had an EGD and colonoscopy earlier this year that was normal. She may need to be evaluated again. Referral made to Hematology. She will also need to f/u with Pulmonology and cardiology as scheduled. She continues to be concerned about SOB. She is on baseline oxygen at 2LNC since her PE this year. Discussed in detail with pt and 2 daughters labs and radiology results. SOB can be related to anemia. [facility] was unable to get her as they had a 3-4 day wait. She is ok with going home today. Will continue antibiotics for UTI. Urine culture came back + for e-coli. She has a hx of this due to loose stools. She specifically asked to be sent home with Bactrim as it has worked well for her in the past. She dnies CP, ABd. pain, N/V. - Vitals & Intake/Output Vital Signs: Vital Signs Temperature 97.1 F 07/09/23 11:34 Pulse Rate 91 H 07/09/23 11:34 Respiratory Rate 21 07/09/23 11:34 Blood Pressure 122/65 07/09/23 11:34 O2 Sat by Pulse Oximetry 98 07/09/23 11:34 Intake & Output: Intake & Output 07/06/23 07/07/23 07/08/23 07/09/23 11:59 11:59 11:59 11:59 Intake Total 360 1460 Output Total 1000 Balance 360 460 Weight 73.4 kg 73.3 kg - Lab Result Diagrams: 07/09/23 04:20 07/09/23 04:20 Lab Results-Last 24 Hrs: Lab Results-Last 24 Hours 07/08/23 07/08/23 07/08/23 Range/Units 13:44 Unknown Unknown WBC (4.0-10.5) x10^3/uL RBC (4.1-5.4) x10^6/uL Hgb (12.0-16.0) g/dL Hct (35-47) % MCV (78-100) fL MCH (26-32) pg MCHC (32-36) g/dL RDW (11.5-14.0) % Plt Count (150-450) x10^3/uL MPV (7.5-11.0) fL D-Dimer 0.31 (0.0-0.50) mg/L Sodium (137-145) mmol/L Potassium (3.5-5.1) mmol/L Chloride (98-107) mmol/L Carbon Dioxide (22-30) mmol/L Anion Gap (5-15) MEQ/L BUN (7-17) mg/dL Creatinine (0.52-1.04) mg/dL Estimated GFR ML/MIN Glucose (74-106) mg/dL Calcium (8.4-10.2) mg/dL Iron 31 L (37-170) ug/dL TIBC 389 (265-462) ug/dL Iron Saturation 8 L (20-39) % Ferritin 14.7 (11.1-264) ng/mL Total Bilirubin (0.2-1.3) mg/dL AST (14-36) U/L ALT (0-35) U/L Alkaline Phosphatase (38-126) U/L Serum Total Protein (6.3-8.2) g/dL Albumin (3.5-5.0) g/dL Vitamin B12 512 (239-931) pg/mL Stl Occult Blood (IFOB) (NEGATIVE) 07/09/23 07/09/23 07/09/23 Range/Units 04:20 04:20 Unknown WBC 9.0 (4.0-10.5) x10^3/uL RBC 3.15 L (4.1-5.4) x10^6/uL Hgb 8.4 L (12.0-16.0) g/dL Hct 28.2 L (35-47) % MCV 89.5 (78-100) fL MCH 26.7 (26-32) pg MCHC 29.8 L (32-36) g/dL RDW 14.8 H (11.5-14.0) % Plt Count 466 H (150-450) x10^3/uL MPV 8.2 (7.5-11.0) fL D-Dimer (0.0-0.50) mg/L Sodium 142 (137-145) mmol/L Potassium 3.2 L (3.5-5.1) mmol/L Chloride 105 (98-107) mmol/L Carbon Dioxide 34 H (22-30) mmol/L Anion Gap 6.6 (5-15) MEQ/L BUN 18 H (7-17) mg/dL Creatinine 0.92 (0.52-1.04) mg/dL Estimated GFR > 60.0 ML/MIN Glucose 88 (74-106) mg/dL Calcium 8.2 L (8.4-10.2) mg/dL Iron (37-170) ug/dL TIBC (265-462) ug/dL Iron Saturation (20-39) % Ferritin (11.1-264) ng/mL Total Bilirubin 0.20 (0.2-1.3) mg/dL AST 35 (14-36) U/L ALT 20 (0-35) U/L Alkaline Phosphatase 98 (38-126) U/L Serum Total Protein 5.6 L (6.3-8.2) g/dL Albumin 3.1 L (3.5-5.0) g/dL Vitamin B12 (239-931) pg/mL Stl Occult Blood (IFOB) POSITIVE A (NEGATIVE) Micro Results-Entire Visit: Microbiology 07/07/23 21:46 Urine Culture - Final Clean Catch Midstream Escherichia Coli - Radiology Exams Ordered Rad Exams-Entire Visit: Radiology Procedures Category Date Time Status CHEST 1 VIEW (PORTABLE) Stat Exams 07/07/23 19:28 Completed - Procedures and Test Procedures and Tests throughout Hospitalization: Therapy Orders & Screens 07/08/23 02:17 Oxygen Nasal Cannula 2 lpm Comment: Diagnosis: SOB, low BP 07/08/23 03:40 Respiratory Therapy Assessment DAILY Comment: Diagnosis: SOB, low BP Discharge Exam General Appearance: no apparent distress, alert Neurologic Exam: alert, oriented x 3, cooperative, normal mood/affect, nml cerebellar function, sensation nml, No motor deficits Eye Exam: PERRL, EOMI, eyes nml inspection Ears, Nose, Throat Exam: normal ENT inspection, pharynx normal, moist mucous membranes Neck Exam: normal inspection, non-tender, supple, full range of motion Respiratory Exam: normal breath sounds, crackles/rales (LLL and RLL), No respiratory distress Cardiovascular Exam: regular rate/rhythm, normal heart sounds Gastrointestinal/Abdomen Exam: soft, No tenderness, No mass Pelvic Exam: deferred Rectal Exam: deferred Back Exam: normal inspection, normal range of motion, No CVA tenderness, No vertebral tenderness Extremity Exam: normal inspection, normal range of motion Skin Exam: normal color, warm, dry Final Diagnosis/Problem List - Final Discharge Diagnosis/Problem (1) Shortness of breath Current Visit: Yes Status: Acute Assessment & Plan: -Has hypoxia, 88% on 2Ls [place] O2 on arrival, but has since improved, and now back to her home dose of 2Ls. -She has been on 2Ls [place] O2 at home since her PE diagnosis -Has hx of PE and is taking her Eliquis faithfully. -CXR clear. -BNP normal. -EKG unchanged from previous. - She has worsening anemia, Hgb went from 10s to 8s. So this could be the reason she is more SOB than usual. -Will support with O2 protocol to keep O2 sat > 92%. -Trops negative x 3 07/09 - symptomatic anemia - at baseline home o2 of 2LNC - D-dimer negative - F/u with Pulmonology OP Code(s): R06.02 - SHORTNESS OF BREATH (2) Iron deficiency anemia Current Visit: Yes Status: Acute Assessment & Plan: -Symptomatic anemia. -Hgb 8.7, was previously 10s. -She is on Eliquis. So concern for blood loss, GIB - she denies black or bloody stools. - Will check stool guaiac to be sure. -Monitor H/H. No tachycardia, but she came in with c/o low BP, and SBP was 110 07/09 - Labs confirm iron def. anemia - Hematology appointment made - Start Ferrous sulfate daily for 3 months - Occults stool sample was done before iron gave. - Hgb stable at 8.4 Code(s): D50.9 - IRON DEFICIENCY ANEMIA, UNSPECIFIED (3) Occult blood positive stool Current Visit: Yes Status: Acute Assessment & Plan: - Occult stool + - Pt reports she had an EGD colonoscopy this year and it was normal. - Hematology to decide if this needs repeated. - Occults stool sample was done before iron gave. - Hgb stable at 8.4 (4) History of pulmonary embolism Current Visit: Yes Status: Acute Assessment & Plan: Will continue Eliquis BID for now. No sign of heart strain. Trops negative x 2, BNP 150s Code(s): Z86.711 - PERSONAL HISTORY OF PULMONARY EMBOLISM (5) Acute on chronic renal failure Current Visit: Yes Status: Acute Assessment & Plan: 2:2 dehydration - She does have CKD 2. -Holding Lisinopril, and other BP meds. -Allow BP to come up some. -IVF with NS at 60ml/hr. -BNP 150s - Pt asked for IV fluids to be stopped as she is eating and drinking well. 07/09 - Labs at baseline Code(s): N17.9 - ACUTE KIDNEY FAILURE, UNSPECIFIED; N18.9 - CHRONIC KIDNEY DISEASE, UNSPECIFIED (6) Dehydration Current Visit: Yes Status: Acute Assessment & Plan: - IVF - oral hydration 07/09 - Kidney function at baseline Code(s): E86.0 - DEHYDRATION (7) Urinary tract infection Current Visit: Yes Status: Acute Assessment & Plan: - Starting Rocephin 1gm IV daily. - Urine culture pending 07/09/23 - Urine culture + for E-coli - Changed antibiotics to Levaquin - D/C with Bactrim per pt request. Code(s): N39.0 - URINARY TRACT INFECTION, SITE NOT SPECIFIED - Discharge Discharge Date: 07/09/23 Disposition: Home, Self-Care Condition: Stable Prescriptions: New Ferrous Sulfate 325 mg [Feosol 325 mg] 325 mg PO DAILY 90 Days #90 tablet Smz/Tmp Ds Tablet [Bactrim Ds Tablet] 1 tab PO Q12H 5 Days #10 tablet Continue Bentyl 10 mg PO QID Omeprazole 40 mg PO DAILY Enalapril Maleate 5 mg 20 mg PO DAILY Mirtazapine [Remeron] 15 mg PO HS Cyclosporine [Restasis Multidose] 1 drop OP BID Chlorthalidone 25 mg PO DAILY Potassium Chloride [Klor-Con 10] 10 meq PO DAILY Amlodipine/Atorvastatin [Amlodipine-Atorvast 10-40 mg] 1 tab PO HS Oxycodone / APAP 10/325 mg [Oxycodone-Acetaminophen 10-325] 1 tab PO TID PRN PRN Reason: Pain Apixaban [Eliquis] 5 mg PO BID 30 Days #60 tablet Mag Hydrox/Aluminum Hyd/Simeth [Antacid Liquid] 30 ml PO TIDWMEALS Hydrocodone/Acetaminophen [Hydrocodone-Acetamin 10-325 mg] 1 tablet PO TID Ibuprofen [Advil] 200 mg PO DAILY PRN PRN PRN Reason: Pain predniSONE [Prednisone] 0.5 mg PO BIDPRN PRN PRN Reason: Shortness Of Breath Dicyclomine HCl 10 mg PO QID Follow up with: JACQUE KOLB [ACTIVE STAFF] - 07/21/23 1:15 pm RYANN WELCH [CONSULTING PHYSICIAN] - 07/13/23 11:00 am (PAPERWORK HAS BEEN FAXED TO THE OFFICE FOR REFERRAL ) JOHN STARKEY MD [Primary Care Provider] - 07/19/23 9:15 am ([facility] [facility])
== END 2023-07-09 13:13 | disposition home or self-care (01) ==
LOC: ED 18:49 → MED SURG 07-08 01:49
PROVIDERS: ADMIT Internal Medicine; ATTEND Internal Medicine
DX: R06.02 Shortness of breath (principal); D50.9 Iron deficiency anemia, unspecified; K92.1 Melena; Z86.711 Personal history of pulmonary embolism; N17.9 Acute kidney failure, unspecified; I12.9 Hypertensive chronic kidney disease with stage 1 through stage 4 chronic kidney disease, or unspecified chronic kidney disease; N18.9 Chronic kidney disease, unspecified; E86.0 Dehydration; N39.0 Urinary tract infection, site not specified; I26.99 Other pulmonary embolism without acute cor pulmonale; Z79.01 Long term (current) use of anticoagulants; Z79.899 Other long term (current) drug therapy; Z20.828 Contact with and (suspected) exposure to other viral communicable diseases; Z99.81 Dependence on supplemental oxygen
CPT/HCPCS: 36000; 36415; 71045; 80053; 81001; 82607; 82728; 83540; 83550; 83880; 84484; 85025; 85027; 85379; 87077; 87086; 87186; 93005; 93041; 94760; 94762; 96365; 99285; G0328; Q3014; 82274; 93268; J0696; J1956; A9270-GY; G0378